=== PATIENT | male | born 1955 | race Caucasian/White ===

== ENCOUNTER → 2017-04-27 | Outpatient (CLI) | payer BC ==
[~2017-04-27] MED LIST: DPKSP125 PO; DULO60CA44 PO; IMT50 PO; ONDA4TAB54 PO; PROM25TA16 PO
[2017-04-27 12:15] LABS: BASO % 0.6 %; BASO ABS # 0.05 K/uL (0-0.2); COMPLETE YES; EOS % 4.2 %; HEMATOCRIT 43.8 % (42-52); IG% 0.1 %; LYMPH % 23.5 %; LYMPH ABS # 1.84 K/uL (1.2-3.4); MEAN CELL VOLUME 92.4 fL (80-100); MEAN CORPUSCULAR HEMOGLOBIN 31.2 pg (25-34); MEAN CORPUSCULAR HGB CONC 33.8 g/dl (32-36); MEAN PLATELET VOLUME 9.9 fL (7.4-10.4); MONO % 8.9 %; NEUT % 62.7 %; PLATELET COUNT 197 K/uL (130-400); RED BLOOD COUNT 4.74 M/uL (4.7-6.1); WHITE BLOOD COUNT 7.83 K/uL (4.8-10.8)
[2017-04-27 12:33] LABS: ESTIMATED AVERAGE GLUCOSE 100 mg/dl; HA1C FLAG Normal (Normal)
[2017-04-27 12:34] LABS: ALT/SGPT 37 U/L (12-78); AST/SGOT 11 U/L (15-37); BLOOD UREA NITROGEN 11 mg/dl (7-18); BUN/CREATININE RATIO 11.2 (10-20); CALCIUM 8.9 mg/dl (8.5-10.1); CARBON DIOXIDE 28 mmol/L (21-32); CHLORIDE 107 mmol/L (98-107); CHOLESTEROL 213 mg/dl (0-200); CREATININE 0.94 mg/dl (0.60-1.40); GLUCOSE 105 mg/dl (70-99); POTASSIUM 4.6 mmol/L (3.5-5.1); SODIUM 141 mmol/L (136-145)
[2017-04-27 12:36] LABS: ALB/GLOB RATIO 1.2 (0.9-2); ALKALINE PHOSPHATASE 101 U/L (45-117); CHOLESTEROL/HDL RATIO 8.2; HDL CHOLESTEROL 26 mg/dl; TRIGLYCERIDES 866 mg/dl (0-150)
== END | disposition home or self-care (01) ==
LOC: C.LABBFT 08:44
PROVIDERS: ATTEND Physician Assistant Medical
DX: D64.9 Anemia, unspecified (principal); E78.5 Hyperlipidemia, unspecified; I10 Essential (primary) hypertension; E78.1 Pure hyperglyceridemia; R73.01 Impaired fasting glucose

== ENCOUNTER → 2017-10-12 | Outpatient (CLI) | payer BC ==
[~2017-10-12] MED LIST changes: +DIVA1CAP2 PO; -DPKSP125 PO
[2017-10-12 17:36] LABS: ALBUMIN 3.9 gm/dl (3.4-5.0); ALT/SGPT 34 U/L (12-78); AST/SGOT 18 U/L (15-37); BLOOD UREA NITROGEN 14 mg/dl (7-18); CALCIUM 8.8 mg/dl (8.5-10.1); CARBON DIOXIDE 29 mmol/L (21-32); CREATININE 0.97 mg/dl (0.60-1.40); GLUCOSE 82 mg/dl (70-99); POTASSIUM 3.7 mmol/L (3.5-5.1); SODIUM 139 mmol/L (136-145)
[2017-10-12 17:41] LABS: ALKALINE PHOSPHATASE 135 U/L (45-117); CHOLESTEROL 84 mg/dl (0-200); LDL CHOLESTEROL CALCULATED 11 mg/dl; TOTAL PROTEIN 7.8 gm/dl (6.4-8.2)
== END | disposition home or self-care (01) ==
LOC: C.LABBFT 14:25
PROVIDERS: ATTEND Internal Medicine
DX: R73.01 Impaired fasting glucose (principal); Z12.5 Encounter for screening for malignant neoplasm of prostate; E78.5 Hyperlipidemia, unspecified

== ENCOUNTER → 2017-11-04 | Outpatient (CLI) | payer BC ==
[~2017-11-04] MED LIST changes: +DIVA125C4 PO; -DIVA1CAP2 PO
[2017-11-04 13:03] LABS: BLOOD UREA NITROGEN 18 mg/dl (7-18); CALCIUM 9.1 mg/dl (8.5-10.1); CARBON DIOXIDE 31 mmol/L (21-32); CREATININE 1.17 mg/dl (0.60-1.40); GLUCOSE 75 mg/dl (70-99); POTASSIUM 3.6 mmol/L (3.5-5.1); SODIUM 140 mmol/L (136-145)
== END | disposition home or self-care (01) ==
LOC: C.LABBFT 10:28
PROVIDERS: ATTEND Physician Assistant Medical
DX: I10 Essential (primary) hypertension (principal)

== ENCOUNTER 2019-01-15 03:36 | Observation (INO) ==
[2019-01-15] MEDS ORDERED: fentaNYL citrate 100 MCG/2 ML VIAL IV STA (03:56)
[2019-01-15 04:10] LABS: Basophils # (auto) 0.03 K/uL (0-0.2); Basophils % (auto) 0.4 %; Eosinophils # (auto) 0.14 K/uL (0-0.5); Eosinophils % (auto) 1.7 %; Hematocrit (blood only) 36.2 % (42-52); Hemoglobin 12.3 g/dL (14.0-18.0); Immature Granulocytes # (auto) 0.01 K/uL (0.00-0.02); Immature Granulocytes % (auto) 0.1 %; Lymphocytes # (auto) 1.08 K/uL (1.2-3.4); Lymphocytes % (auto) 13.1 %; Mean Corpuscular Volume 90.5 fL (80-100); Mean Platelet Volume 8.9 fL (7.4-10.4); Monocytes % (auto) 10.9 %; Neutrophils # (auto) 6.11 K/uL (1.4-6.5); Neutrophils % (auto) 73.8 %; Platelet Count 183 K/uL (130-400); RDW Coefficient of Variation 13.2 % (11.5-14.5); RDW Standard Deviation 43.5 fL (36.4-46.3); White Blood Count 8.27 K/uL (4.8-10.8)
[2019-01-15 04:21] LABS: INR 1.7 (0.9-1.1); Prothrombin Time 17.2 Seconds (9.0-12.0)
[2019-01-15 04:22] LABS: iSTAT Creatinine 0.8 mg/dl (0.6-1.3); iSTAT Hemoglobin 11.9 g/dl (14.0-18.0); iSTAT Ionized Calcium 1.11 mmol/l (1.12-1.32); iSTAT Potassium 3.5 mEq/L (3.3-5.0)
[2019-01-15 04:28] LABS: Blood Urea Nitrogen 13 mg/dl (7-18); Carbon Dioxide 26 mmol/L (21-32); Chloride 112 mmol/L (98-107); Est GFR (African American) 106.2; Potassium 3.6 mmol/L (3.5-5.1); Sodium 141 mmol/L (136-145)
[2019-01-15 04:29] LABS: Alanine Aminotransferase 35 U/L (12-78); Albumin Level 3.4 gm/dl (3.4-5.0); Aspartate Aminotransferase 29 U/L (15-37); BUN Creatinine Ratio 14.4 (10-20); Bilirubin Direct 0.1 mg/dl (0-0.2); Calcium 8.6 mg/dl (8.5-10.1); Creatinine Clr Calc Pharmacy 90.8 ml/min; Est GFR (Non-African American) 91.6; Glucose 111 mg/dl (70-99)
[2019-01-15 04:31] LABS: Alkaline Phosphatase 129 U/L (45-117); Bilirubin,Total 0.3 mg/dl (0.2-1)
[2019-01-15] MEDS ORDERED: OPTIRAY 320 125ml IV PRN (04:52)
[2019-01-15 05:39] LABS: Troponin I < 0.015 ng/ml (0-0.045)
[2019-01-15] MEDS ORDERED: HYDROmorphone INJ 1 MG/ML SYRINGE IV STA (05:50)
--- NOTE | 2019-01-15 08:32 | CT Scan Report ---
CT ANGIOGRAPHY OF THE CHEST, ABDOMEN, AND PELVIS CLINICAL HISTORY: post op MV repair, tearing left chest pain COMPARISON STUDY: Chest CT July 09, 2018. TECHNIQUE: Before and following the IV administration of 119 mL of Optiray-320, helical axial images of the chest, abdomen and pelvis were obtained. Maximal intensity projections and sagittal and coron al reformats were viewed on an independent 3D workstation. IV contrast was administered without comp lication. Automated exposure control was utilized for the study. A dose lowering technique was util ized adhering to the principles of ALARA. CT DOSE: 713.97 mGy.cm FINDINGS: There are postoperative findings consistent with recent median sternotomy and mitral valve replacement. Small mildly complex pericardial effusion is noted. The heart is mildly enlarged. Ther e is no thoracic aortic intramural hematoma or dissection. A small left pleural effusion is noted wit h left basilar opacity suggestive of atelectasis. There is no pneumothorax. There is no consolidation to suggest pneumonia. Central airways are patent. No pulmonary embolus is identified. There may be o ccluded device within the left atrial appendage. Upper abdomen is unremarkable. Bony thorax is unrema rkable. Small hiatal hernia is noted. IMPRESSION: 1. No thoracic aortic dissection. 2. Small mildly complex pericardial effusion with postoperative findings suggestive of recent median sternotomy. 3. Small left pleural effusion with left basilar opacity suggestive of atelectasis. Electronically signed by: Dariusz Bhakta M.D. 01/15/2019 8:30 AM
--- NOTE | 2019-01-15 08:44 | Emergency Department Note ---
Entered by Timmy Hancock acting as a scribe for Sumeet Jang MD ED Provider Note Name: Brenden Hogue Age: 63 Arrives Via: Private Vehicle Informant: Patient CC: Chest Pain HPI: A male arrives for evaluation of situational chest pain starting last night. The patient states he had a mitral valve repair by Dr. Lopez in [place]. He states he started to have chest pain under his rib cage. He states the pain is worse with deep breaths. He notes he took Tylenol for the pain. The patient states laying down makes the pain worse. The patient notes he had shoulder pain but he does not have it now. He denies abdominal pain, urinary symptoms, and kidney problems. The patient notes he takes Coumadin. He notes he did a cath before the surgery and it showed no blockages. ROS: See above HPI for pertinent positives & negatives. A total of 10 systems reviewed and were otherwise negative. Past Medical History: Cyst of left kidney, mitral regurgitation, hyperlipidemia, HTN, GERD Past Surgical History: Mitral valve repair, History of appendectomy, Hx of LASIK, History of colonoscopy, Hx of vasectomy, H/O knee surgery Family History: Father- Glioblastoma Social History: Uses hearing aid. Never smoker. Home Medications: Atorvastatin, hydrochlorothiazide, hydrocodone-acetaminophen, and irbesartan. Allergies Aspirin and morphine Physical: Vitals: BP: 139/89. P: 71. R: 18. T: 97.9. O2: 97 Exam: GENERAL: Patient is uncomfortable appearing and in moderate distress. EYES: No scleral icterus, unremarkable pupils. ENT: Mucous membranes moist, no nasal congestion. NECK: No masses appreciated, no meningismus, trachea is midline. RESPIRATORY: No dyspnea. Clear to auscultation and equal bilaterally. No wheeze, no rhonchi. CARDIOVASCULAR: Regular rate and rhythm. No murmurs, rubs, gallops appreciated. GASTROINTESTINAL: Abdomen soft, non-tender, no peritonitis. Bowel sounds positive. No masses appreciated. BACK: No midline tenderness, no CVA tenderness EXTREMITIES: Normal motion all extremities, no cyanosis, no edema. NEUROLOGIC: Alert and oriented, no acute motor or sensory deficits, no focal weakness, cranial nerves grossly intact. SKIN: No rash, no jaundice, no diaphoresis. ED Course: Prior Medical Record, Triage/Nursing Notes, Medications, Allergies reviewed by Me Vital Signs: reviewed and remarkable for HTN (initially) Labs: Reviewed and remarkable for INR 1.7, Trop negative, mild anemia, otherwise normal cbc, bmp, lft Interventions: Saline Lock, Fentanyl 50mcg IV, Dilaudid 1 mg IV, NSS bolus 1 L IV Imaging: X ray results are stated below per my interpretation: Chest: 1 view: No infiltrate, no effusion, normal cardiac border. [facility] Radiologist interpretation reviewed by me: "CTA CHEST: No large central PE. Some peripheral vessels not well evaluated due to motion artifact. No evidence of aortic aneurysm or dissection. Small left pleural effusion with left greater than right basilar atelectasis/infiltrate. Pericardial effusion measuring approximately 1.3 cm in thickness. Stranding and fluid surrounding the sternum, may be postoperative. Correlate clinically regarding inflammatory/infectious process. Linear radiopacity between the main pulmonary artery and vein. Correlate with surgical history. Small hiatal hernia. Mild esophageal wall thickening. Radiologist: Kenia Youngblood M.D." EKG: Per My Interpretation: Indication: Chest Pain: NSR 80 bpm qtc 456 without ectopy nor ischemia, mildly low voltage Consults: 0555: I spoke with Dr. Lopez, cardiothoracic surgeon at [place]. I discussed tonight's findings. He notes concern for pericarditis. He discussed possibiliti es for cardiac tamponade, but given normal vitals and exam findings, we will wait for ECHO. Patient will be admitted to this facility for cardiac evaluation and ECHO. 0610: I spoke with Dr. Maloney, team psychologist. He will get the ECHO done and will evaluate the patient. He requests the patient be admitted to the hospitalist service. 0620: I spoke with Dr. Abarca, [facility] hospitalist, about this patient. He will evaluate the patient for further management. Reassessments/Times: 0345: The patient was evaluated in room B5, and a complete history and physical examination were performed. 0512: I reevaluated the patient. He states his pain has improved. He states he still has some sharp periodic pain. He declines further pain medication. His BP has improved. Blood pressure: Normal with pain control. No Referral necessary Disposition: Hospitalization Differentials: Differential: Cardiac Ischemia (STEMI, NSTEMI, Unstable Angina, etc), Aortic Dissection, Arrhythmia, Pulmonary Embolism, Pneumonia, Pneumothorax, MSK, Infectious, Pericarditis/Myocarditis, Esophageal Rupture, Gastrointestinal, amongst other pathologies entertained. Medical Decision Makin yr old male 5 weeks post [address] repair [address] [facility] arrives for evaluation of worsening left/substernal chest pain over last 48 hours. Pleuritic as well as worse with heart beating. No evidence on infection nor tamponade on arrival/exam. CXR clear on arrival. With HTN, recent cardiac surg and stabbing pain emergently sent to CT once pain controlled. No evidence dissection, nor evidence of central PE. There is evidence of pericardial effusion, left pleural effusion, sternum stranding/fluid. Reviewed with CTSurg at [facility] who feel patient will need echo but that we can do this at our facility. Reviewed with Dr Maloney who agrees with this plan and will bring in to hospitalist for further management. With patient control patient looks well and is stable. Likely this is perica rditis though with effusion will need echo. No fever, wbc ok and he does not appear septic, seem likely other CT findings related to post op as opposed to infectious etiology. Impression: Pericardial Effusion Left-Sided Chest Pain Pleural Effusion on Left Sumeet Jang MD The scribe's documentation has been prepared under my direction and personally reviewed by me in its entirety. I confirm that the note above accurately reflects all work, treatment, procedures, and medical decision making performed by me. 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 HOSPITALIZED AT [facility]. NO SURGERY. GERD (gastroesophageal reflux disease) GI bleed R/T [facility] Hearing deficit Heart murmur Hemorrhoids High blood pressure Hyperlipidemia Kidney stones Migraine Mitral valve regurgitation Temporomandibular joint disorder [employer]. NEVER LOCKED. Surgical History H/O knee surgery 1976. History of appendectomy History of appendectomy History of colonoscopy Hx of LASIK Hx of vasectomy Family History Father Glioblastoma Social History (Reviewed 01/15/19 @ 04:25 by Timmy Lara Preferred Language: Djiboutian Communication Ability: Effective Visual Impairment: No Limitations Hearing Ability: Use of Hearing Aid Beliefs That Will Affect Care: None Current Living Situation: Spouse Feels Safe at Home: Yes Smoking Status: Never smoker Second Hand Exposure: No Hx Alcohol Use: No Hx Substance Use: No Results & Data Vital Signs Vital Signs - 24 hr 01/15/19 03:39 01/15/19 03:48 01/15/19 04:01 Temperature 36.6 C Temperature Source Oral Sepsis Recent Fever Within 48 Hours No Sepsis Action Taken by Nursing No Action Required Pulse Rate 79 77 71 Pulse Rate [Apical] Pulse Rate from SpO2 Sensor 76 71 Pulse Rhythm [Apical] Pulse Strength [Apical] Respiratory Rate 16 25 H 24 Respiratory Effort / Characteristics Respiratory Depth Normal Blood Pressure 172/124 H 175/100 H 139/89 Blood Pressure [Right Arm] Blood Pressure Mean 140 125 105 Blood Pressure Mean [Right Arm] Pulse Oximetry 97 96 96 Oxygen Delivery Method Room Air 01/15/19 04:07 01/15/19 04:52 01/15/19 04:55 Temperature Temperature Source Sepsis Recent Fever Within 48 Hours Sepsis Action Taken by Nursing Pulse Rate 69 Pulse Rate [Apical] 71 69 Pulse Rate from SpO2 Sensor 71 Pulse Rhythm [Apical] Regular Regular Pulse Strength [Apical] Normal Respiratory Rate 18 16 17 Respiratory Effort / Characteristics Non-Labored Spontaneous Labored Non-Labored Spontaneous Respiratory Depth Normal Normal Blood Pressure 151/94 H Blood Pressure [Right Arm] 139/89 151/94 H Blood Pressure Mean 113 Blood Pressure Mean [Right Arm] 105 113 Pulse Oximetry 97 96 96 Oxygen Delivery Method Room Air Room Air 01/15/19 05:00 01/15/19 05:01 01/15/19 05:10 Temperature Temperature Source Sepsis Recent Fever Within 48 Hours Sepsis Action Taken by Nursing Pulse Rate 68 70 66 Pulse Rate [Apical] Pulse Rate from SpO2 Sensor 67 69 66 Pulse Rhythm [Apical] Pulse Strength [Apical] Respiratory Rate 14 15 19 Respiratory Effort / Characteristics Respiratory Depth Blood Pressure 148/93 H Blood Pressure [Right Arm] Blood Pressure Mean 111 Blood Pressure Mean [Right Arm] Pulse Oximetry 96 94 97 Oxygen Delivery Method 01/15/19 05:20 01/15/19 05:30 01/15/19 05:31 Temperature Temperature Source Sepsis Recent Fever Within 48 Hours Sepsis Action Taken by Nursing Pulse Rate 69 70 68 Pulse Rate [Apical] Pulse Rate from SpO2 Sensor 70 74 73 Pulse Rhythm [Apical] Pulse Strength [Apical] Respiratory Rate 20 21 22 Respiratory Effort / Characteristics Respiratory Depth Blood Pressure 150/96 H Blood Pressure [Right Arm] Blood Pressure Mean 114 Blood Pressure Mean [Right Arm] Pulse Oximetry 94 89 L Oxygen Delivery Method 01/15/19 05:39 01/15/19 05:40 01/15/19 05:50 Temperature Temperature Source Sepsis Recent Fever Within 48 Hours Sepsis Action Taken by Nursing Pulse Rate 70 66 Pulse Rate [Apical] 69 Pulse Rate from SpO2 Sensor 71 67 Pulse Rhythm [Apical] Regular Pulse Strength [Apical] Respiratory Rate 14 19 22 Respiratory Effort / Characteristics Non-Labored Spontaneous Respiratory Depth Normal Blood Pressure Blood Pressure [Right Arm] 150/96 H Blood Pressure Mean Blood Pressure Mean [Right Arm] 114 Pulse Oximetry 95 95 97 Oxygen Delivery Method Room Air 01/15/19 06:00 01/15/19 06:01 01/15/19 06:10 Temperature Temperature Source Sepsis Recent Fever Within 48 Hours Sepsis Action Taken by Nursing Pulse Rate 69 72 71 Pulse Rate [Apical] Pulse Rate from SpO2 Sensor 69 72 71 Pulse Rhythm [Apical] Pulse Strength [Apical] Respiratory Rate 19 15 14 Respiratory Effort / Characteristics Respiratory Depth Blood Pressure 155/106 H Blood Pressure [Right Arm] Blood Pressure Mean 122 Blood Pressure Mean [Right Arm] Pulse Oximetry 97 96 97 Oxygen Delivery Method 01/15/19 06:20 01/15/19 06:30 01/15/19 06:31 Temperature Temperature Source Sepsis Recent Fever Within 48 Hours Sepsis Action Taken by Nursing Pulse Rate 72 90 81 Pulse Rate [Apical] Pulse Rate from SpO2 Sensor 81 87 81 Pulse Rhythm [Apical] Pulse Strength [Apical] Respiratory Rate 26 H 20 13 Respiratory Effort / Characteristics Respiratory Depth Blood Pressure 151/99 H Blood Pressure [Right Arm] Blood Pressure Mean 116 Blood Pressure Mean [Right Arm] Pulse Oximetry 97 97 97 Oxygen Delivery Method 01/15/19 06:40 01/15/19 06:50 01/15/19 07:00 Temperature Temperature Source Sepsis Recent Fever Within 48 Hours Sepsis Action Taken by Nursing Pulse Rate 76 78 75 Pulse Rate [Apical] Pulse Rate from SpO2 Sensor 75 78 75 Pulse Rhythm [Apical] Pulse Strength [Apical] Respiratory Rate 18 20 17 Respiratory Effort / Characteristics Respiratory Depth Blood Pressure Blood Pressure [Right Arm] Blood Pressure Mean Blood Pressure Mean [Right Arm] Pulse Oximetry 95 93 97 Oxygen Delivery Method 01/15/19 07:01 01/15/19 07:10 01/15/19 07:20 Temperature Temperature Source Sepsis Recent Fever Within 48 Hours Sepsis Action Taken by Nursing Pulse Rate 74 74 79 Pulse Rate [Apical] Pulse Rate from SpO2 Sensor 74 74 77 Pulse Rhythm [Apical] Pulse Strength [Apical] Respiratory Rate 19 19 19 Respiratory Effort / Characteristics Respiratory Depth Blood Pressure 151/108 H Blood Pressure [Right Arm] Blood Pressure Mean 122 Blood Pressure Mean [Right Arm] Pulse Oximetry 96 94 93 Oxygen Delivery Method 01/15/19 07:30 01/15/19 07:31 01/15/19 07:40 Temperature Temperature Source Sepsis Recent Fever Within 48 Hours Sepsis Action Taken by Nursing Pulse Rate 77 78 77 Pulse Rate [Apical] Pulse Rate from SpO2 Sensor 78 78 77 Pulse Rhythm [Apical] Pulse Strength [Apical] Respiratory Rate 19 20 18 Respiratory Effort / Characteristics Respiratory Depth Blood Pressure 140/86 Blood Pressure [Right Arm] Blood Pressure Mean 104 Blood Pressure Mean [Right Arm] Pulse Oximetry 93 93 92 Oxygen Delivery Method 01/15/19 07:50 01/15/19 08:00 01/15/19 08:01 Temperature Temperature Source Sepsis Recent Fever Within 48 Hours Sepsis Action Taken by Nursing Pulse Rate 78 80 85 Pulse Rate [Apical] Pulse Rate from SpO2 Sensor 78 80 85 Pulse Rhythm [Apical] Pulse Strength [Apical] Respiratory Rate 20 19 30 H Respiratory Effort / Characteristics Respiratory Depth Blood Pressure 139/90 Blood Pressure [Right Arm] Blood Pressure Mean 106 Blood Pressure Mean [Right Arm] Pulse Oximetry 93 93 94 Oxygen Delivery Method Laboratory Data Result diagrams: 01/15/19 03:59 01/15/19 03:59 Lab Results 01/15/19 01/15/19 01/15/19 Range/Units 03:59 03:59 03:59 WBC 8.27 (4.8-10.8) K/uL RBC 4.00 L (4.7-6.1) M/uL Hgb 12.3 L (14.0-18.0) g/dL POC Hgb (14.0-18.0) g/dl Hct 36.2 L (42-52) % POC Hct (42-52) % MCV 90.5 (80-100) fL MCH 30.8 (25-34) pg MCHC 34.0 (32-36) g/dL RDW Std Deviation 43.5 (36.4-46.3) fL RDW Coeff of Gregory 13.2 (11.5-14.5) % Plt Count 183 (130-400) K/uL MPV 8.9 (7.4-10.4) fL Immature Gran % (Auto) 0.1 % Neut % (Auto) 73.8 % Lymph % (Auto) 13.1 % Villalba % (Auto) 10.9 % Eos % (Auto) 1.7 % Baso % (Auto) 0.4 % Immature Gran # (Auto) 0.01 (0.00-0.02) K/uL Neut # (Auto) 6.11 (1.4-6.5) K/uL Lymph # (Auto) 1.08 L (1.2-3.4) K/uL Villalba # (Auto) 0.90 H (0.11-0.59) K/uL Eos # (Auto) 0.14 (0-0.5) K/uL Baso # (Auto) 0.03 (0-0.2) K/uL PT 17.2 H (9.0-12.0) Seconds INR 1.7 H (0.9-1.1) POC Sodium (135-144) mEq/L Sodium 141 (136-145) mmol/L POC Potassium (3.3-5.0) mEq/L Potassium 3.6 (3.5-5.1) mmol/L POC Chloride (101-112) mEq/L Chloride 112 H (98-107) mmol/L Carbon Dioxide 26 (21-32) mmol/L POC Total CO2 (24-31) mEq/l Anion Gap 3.0 (3-11) POC Anion Gap (16-25) mmol/L POC BUN (7-18) mg/dl BUN 13 (7-18) mg/dl Creatinine 0.89 (0.6-1.4) mg/dl POC Creatinine (0.6-1.3) mg/dl Est Cr Clr Drug Dosing 90.8 ml/min Est GFR ( Amer) 106.2 Est GFR (Non-Af Amer) 91.6 BUN/Creatinine Ratio 14.4 (10-20) Glucose 111 H (70-99) mg/dl POC Glucose (other) (70-99) mg/dl Calcium 8.6 (8.5-10.1) mg/dl POC Ioniz Calcium Antonieta (1.12-1.32) mmol/l Total Bilirubin 0.3 (0.2-1) mg/dl Direct Bilirubin 0.1 (0-0.2) mg/dl AST 29 (15-37) U/L ALT 35 (12-78) U/L Alkaline Phosphatase 129 H (45-117) U/L Troponin I < 0.015 (0-0.045) ng/ml Total Protein 7.0 (6.4-8.2) gm/dl Albumin 3.4 (3.4-5.0) gm/dl Lipase 84 (73-393) U/L 01/15/19 01/15/19 Range/Units 03:59 04:07 WBC (4.8-10.8) K/uL RBC (4.7-6.1) M/uL Hgb (14.0-18.0) g/dL POC Hgb 11.9 L (14.0-18.0) g/dl Hct (42-52) % POC Hct 35 L (42-52) % MCV (80-100) fL MCH (25-34) pg MCHC (32-36) g/dL RDW Std Deviation (36.4-46.3) fL RDW Coeff of Gregory (11.5-14.5) % Plt Count (130-400) K/uL MPV (7.4-10.4) fL Immature Gran % (Auto) % Neut % (Auto) % Lymph % (Auto) % Villalba % (Auto) % Eos % (Auto) % Baso % (Auto) % Immature Gran # (Auto) (0.00-0.02) K/uL Neut # (Auto) (1.4-6.5) K/uL Lymph # (Auto) (1.2-3.4) K/uL Villalba # (Auto) (0.11-0.59) K/uL Eos # (Auto) (0-0.5) K/uL Baso # (Auto) (0-0.2) K/uL PT (9.0-12.0) Seconds INR (0.9-1.1) POC Sodium 143 (135-144) mEq/L Sodium (136-145) mmol/L POC Potassium 3.5 (3.3-5.0) mEq/L Potassium (3.5-5.1) mmol/L POC Chloride 108 (101-112) mEq/L Chloride (98-107) mmol/L Carbon Dioxide (21-32) mmol/L POC Total CO2 24 (24-31) mEq/l Anion Gap (3-11) POC Anion Gap 16.0 (16-25) mmol/L POC BUN 12 (7-18) mg/dl BUN (7-18) mg/dl Creatinine (0.6-1.4) mg/dl POC Creatinine 0.8 (0.6-1.3) mg/dl Est Cr Clr Drug Dosing ml/min Est GFR ( Amer) Est GFR (Non-Af Amer) BUN/Creatinine Ratio (10-20) Glucose (70-99) mg/dl POC Glucose (other) 117 H (70-99) mg/dl Calcium (8.5-10.1) mg/dl POC Ioniz Calcium Antonieta 1.11 L (1.12-1.32) mmol/l Total Bilirubin (0.2-1) mg/dl Direct Bilirubin (0-0.2) mg/dl AST (15-37) U/L ALT (12-78) U/L Alkaline Phosphatase (45-117) U/L Troponin I Cancelled (0-0.045) ng/ml Total Protein (6.4-8.2) gm/dl Albumin (3.4-5.0) gm/dl Lipase Cancelled (73-393) U/L Administered Medications Ioversol (Optiray 320 125ml) 119 ml IV ONCE PRN PRN Reason: Interaction Checking Stop: 01/19/19 04:51 Last Admin: 01/15/19 04:52 Dose: 119 ml Documented by: [id number] Discontinued Medications Fentanyl Citrate (Fentanyl Citrate) 75 mcg IV NOW STA Stop: 01/15/19 03:57 Last Admin: 01/15/19 04:07 Dose: 75 mcg Documented by: [id number] Hydromorphone HCl (Dilaudid) 1 mg IV NOW STA Stop: 01/15/19 05:51 Last Admin: 01/15/19 05:56 Dose: 1 mg Documented by: [id number] Discharge Plan Visit Data Chief Complaint: Chest Pain Stated Complaint: HARD TO BREATHE,CHEST PAIN ED Provider: Sumeet Jang Discharge Problem: Pericardial effusion, Left-sided chest pain, Pleural effusion on left Forms Stand Alone Forms: Call Back Authorization, My [facility] Prescriptions Prescriptions: No Action levothyroxine 50 mcg tablet 25 mg PO DAILY RF: 0 warfarin [Jantoven] 5 mg tablet 5 mg PO 2XWK RF: 0 warfarin [Jantoven] 5 mg tablet 2.5 mg PO 5XWK RF: 0 atorvastatin 40 mg Tablet 40 mg PO HS RF: 0 hydrochlorothiazide 25 mg Tablet 25 mg PO DAILY RF: 0 irbesartan 300 mg Tablet 150 mg PO DAILY RF: 0 Referrals Referrals: Mart Lowe MD [Primary Care Provider] - The scribe's documentation has been prepared under my direction and personally r eviewed by me in its entirety. I confirm that the note above accurately reflects all work, treatment, procedures, and medical decision making performed by me.
--- NOTE | 2019-01-15 09:01 | History & Physical Report ---
Date of Service January 15, 2019 Assessment & Plan (1) Pericardial effusion: 63-year-old male with a past medical history of hypertension, hyperlipidemia status post mitral valve replacement 5 weeks ago presents with left-sided chest pain, constant, worse with inspiration Left-sided chest pain/pericardial effusionlikely representing underlying pericarditis Small noncomplex pericardial effusion seen on CT, troponin negative, low voltage normal sinus rhythm Cardiology consulted, echocardiogram ordered, patient started on colchicine Pain controlled in the emergency roomPercocet every 4, as needed for pain Continue to trend troponin, EKG with chest pain Status post mitral valve replacement Continue warfarinINR 1.7 5 mg Thursday and Thursday 2.5 mg Thursday, Thursday, , Thursday Hypertension Continue irbesartan Hydrochlorothiazide Hyperlipidemia Continue atorvastatin Hypothyroidism Continue levothyroxine CODE STATUS Full code DVT prophylaxis Warfarin Diet N.p.o. until seen by cardiology, can have ice chips and meds (2) Left-sided chest pain: (3) Hyperlipidemia: (4) HTN (hypertension): (5) GERD (gastroesophageal reflux disease): History of Present Illness Primary Care Provider: Jarrod Lowe MD 63-year-old male with a past medical history of hypertension, hyperlipidemia, mitral valve insufficiency status post replacement, GERD presents with left- sided chest pain. The patient is status post mitral valve replacement 5 weeks ago. He states that since his surgery he is recovering well and has not had any issues. Earlier this week he felt a twinge of left-sided pain while doing some gardening. He states that similar pain continued on , worse with deep inspiration and progressed to a sharp pain with normal breathing into Thursday evening. The pain was severe enough on Thursday evening/Thursday morning, prompting him to go to the emergency room. He denies that the pain is worse with exertion. He states that the pain is worse while leaning backwards and is improved with leaning forward. He denies any recent fevers, URI symptoms or GI symptoms. Review of systems Constitutional; no fevers, chills, night sweats HEENT; denies URI symptomsno runny nose, no sneezing, no cough CV; chest pain as described above, no shortness of breath, no lower extremity swelling Pulmonary; no cough, no wheezing, no hemoptysis Abdomen; no abdominal pain, no nausea/vomiting/diarrhea Allergies Allergy/AdvReac Type Severity Reaction Status Date / Time aspirin Allergy Intermediate BLEEDING Verified 01/15/19 05:54 morphine AdvReac Intermediate Vomiting Verified 01/15/19 05:54 Home Medications Home Medications Medication Instructions Recorded Confirmed Type atorvastatin 40 mg PO HS 07/09/18 01/15/19 History hydrochlorothiazide 25 mg PO DAILY 07/09/18 01/15/19 History irbesartan 150 mg PO DAILY 07/09/18 01/15/19 History levothyroxine 25 mg PO DAILY 01/15/19 01/15/19 History warfarin [Jantoven] 2.5 mg PO 5XWK 01/15/19 01/15/19 History warfarin [Jantoven] 5 mg PO 2XWK 01/15/19 01/15/19 History Past Med/Surg History Medical History Acid reflux Anemia R/T BLEEDING HEMORRHOIDS Anxiety Chronic back pain Degenerative disc disease 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 HOSPITALIZED AT [facility]. NO SURGERY. GERD (gastroesophageal reflux disease) GI bleed R/T ASPIRIN Hearing deficit Heart murmur Hemorrhoids High blood pressure Hyperlipidemia Kidney stones Migraine Mitral valve regurgitation Temporomandibular joint disorder [employer]. NEVER LOCKED. Surgical History H/O knee surgery 1976. History of appendectomy History of appendectomy History of colonoscopy Hx of LASIK Hx of vasectomy Family History Father Glioblastoma Social History Preferred Language: German Communication Ability: Effective Visual Impairment: No Limitations Hearing Ability: Use of Hearing Aid Ethernet Network Architect Required: No Beliefs That Will Affect Care: None Current Living Situation: Spouse Other Information That Helps Us Care for You: No Feels Safe at Home: Yes Safety Concerns: Feels Safe At This Time Smoking Status: Never smoker Do You Dip or Chew Tobacco: No Second Hand Exposure: No Hx Alcohol Use: No Hx Substance Use: No Review of Systems Review of Systems: All systems reviewed & are unremarkable except as noted in HPI & below Physical Exam Constitutional: WD/WN, vitals as above Eyes: PERRL, conjunctivae normal, anicteric sclerae ENMT: external ear and nose normal, oropharynx normal Neck: trachea midline, no thyromegaly Respiratory: normal respiratory effort, lungs clear to auscultation Auscultation: no crackles, no rales, no rhonchi and no wheezes Cardiovascular: RRR, no murmur, no edema Gastrointestinal (Abdomen): normal bowel sounds, soft, nontender, no hepatosplenomegaly Musculoskeletal: no cyanosis or clubbing, extremities motor strength 5/5 Skin: no rashes, warm and dry Well-healing sternal incision, no surrounding erythema or discharge Neurologic: PERRL, EOMI, accommodation nl, no face palsy, no dysarthria CN's II-XI intact bilaterally and moves all extremities Psychiatric: A+Ox3, euthymic affect Results & Data Vital Signs (Past 12 Hours) Vital Signs Temp Pulse Pulse Resp BP BP Pulse Ox 01/15/19 08:01 85 30 H 139/90 94 01/15/19 08:00 80 19 93 01/15/19 07:50 78 20 93 01/15/19 07:40 77 18 92 01/15/19 07:31 78 20 140/86 93 01/15/19 07:30 77 19 93 01/15/19 07:20 79 19 93 01/15/19 07:10 74 19 94 01/15/19 07:01 74 19 151/108 H 96 01/15/19 07:00 75 17 97 01/15/19 06:50 78 20 93 01/15/19 06:40 76 18 95 01/15/19 06:31 81 13 151/99 H 97 01/15/19 06:30 90 20 97 01/15/19 06:20 72 26 H 97 01/15/19 06:10 71 14 97 01/15/19 06:01 72 15 155/106 H 96 01/15/19 06:00 69 19 97 01/15/19 05:50 66 22 97 01/15/19 05:40 70 19 95 01/15/19 05:39 69 14 150/96 H 95 01/15/19 05:31 68 22 150/96 H 89 L 01/15/19 05:30 70 21 01/15/19 05:20 69 20 94 01/15/19 05:10 66 19 97 01/15/19 05:01 70 15 148/93 H 94 01/15/19 05:00 68 14 96 01/15/19 04:55 69 17 151/94 H 96 01/15/19 04:52 69 16 151/94 H 96 01/15/19 04:07 71 18 139/89 97 01/15/19 04:01 71 24 139/89 96 01/15/19 03:48 77 25 H 175/100 H 96 01/15/19 03:39 36.6 C 79 16 172/124 H 97 Laboratory Results Laboratory Last Values WBC 8.27 K/uL (4.8-10.8) 01/15/19 03:59 RBC 4.00 M/uL (4.7-6.1) L 01/15/19 03:59 Hgb 12.3 g/dL (14.0-18.0) L 01/15/19 03:59 POC Hgb 11.9 g/dl (14.0-18.0) L 01/15/19 04:07 Hct 36.2 % (42-52) L 01/15/19 03:59 POC Hct 35 % (42-52) L 01/15/19 04:07 MCV 90.5 fL (80-100) 01/15/19 03:59 MCH 30.8 pg (25-34) 01/15/19 03:59 MCHC 34.0 g/dL (32-36) 01/15/19 03:59 RDW Std Deviation 43.5 fL (36.4-46.3) 01/15/19 03:59 RDW Coeff of Gregory 13.2 % (11.5-14.5) 01/15/19 03:59 Plt Count 183 K/uL (130-400) 01/15/19 03:59 MPV 8.9 fL (7.4-10.4) 01/15/19 03:59 Immature Gran % (Auto) 0.1 % 01/15/19 03:59 Neut % (Auto) 73.8 % 01/15/19 03:59 Lymph % (Auto) 13.1 % 01/15/19 03:59 Rutherford % (Auto) 10.9 % 01/15/19 03:59 Eos % (Auto) 1.7 % 01/15/19 03:59 Baso % (Auto) 0.4 % 01/15/19 03:59 Immature Gran # (Auto) 0.01 K/uL (0.00-0.02) 01/15/19 03:59 Neut # (Auto) 6.11 K/uL (1.4-6.5) 01/15/19 03:59 Lymph # (Auto) 1.08 K/uL (1.2-3.4) L 01/15/19 03:59 Rutherford # (Auto) 0.90 K/uL (0.11-0.59) H 01/15/19 03:59 Eos # (Auto) 0.14 K/uL (0-0.5) 01/15/19 03:59 Baso # (Auto) 0.03 K/uL (0-0.2) 01/15/19 03:59 PT 17.2 Seconds (9.0-12.0) H 01/15/19 03:59 INR 1.7 (0.9-1.1) H 01/15/19 03:59 POC Sodium 143 mEq/L (135-144) 01/15/19 04:07 Sodium 141 mmol/L (136-145) 01/15/19 03:59 POC Potassium 3.5 mEq/L (3.3-5.0) 01/15/19 04:07 Potassium 3.6 mmol/L (3.5-5.1) 01/15/19 03:59 POC Chloride 108 mEq/L (101-112) 01/15/19 04:07 Chloride 112 mmol/L (98-107) H 01/15/19 03:59 Carbon Dioxide 26 mmol/L (21-32) 01/15/19 03:59 POC Total CO2 24 mEq/l (24-31) 01/15/19 04:07 Anion Gap 3.0 (3-11) 01/15/19 03:59 POC Anion Gap 16.0 mmol/L (16-25) 01/15/19 04:07 POC BUN 12 mg/dl (7-18) 01/15/19 04:07 BUN 13 mg/dl (7-18) 01/15/19 03:59 Creatinine 0.89 mg/dl (0.6-1.4) 01/15/19 03:59 POC Creatinine 0.8 mg/dl (0.6-1.3) 01/15/19 04:07 Est Cr Clr Drug Dosing 90.8 ml/min 01/15/19 03:59 Est GFR ( Amer) 106.2 01/15/19 03:59 Est GFR (Non-Af Amer) 91.6 01/15/19 03:59 BUN/Creatinine Ratio 14.4 (10-20) 01/15/19 03:59 Glucose 111 mg/dl (70-99) H 01/15/19 03:59 POC Glucose (other) 117 mg/dl (70-99) H 01/15/19 04:07 Calcium 8.6 mg/dl (8.5-10.1) 01/15/19 03:59 POC Ioniz Calcium Antonieta 1.11 mmol/l (1.12-1.32) L 01/15/19 04:07 Total Bilirubin 0.3 mg/dl (0.2-1) 01/15/19 03:59 Direct Bilirubin 0.1 mg/dl (0-0.2) 01/15/19 03:59 AST 29 U/L (15-37) 01/15/19 03:59 ALT 35 U/L (12-78) 01/15/19 03:59 Alkaline Phosphatase 129 U/L (45-117) H 01/15/19 03:59 Troponin I < 0.015 ng/ml (0-0.045) 01/15/19 03:59 Total Protein 7.0 gm/dl (6.4-8.2) 01/15/19 03:59 Albumin 3.4 gm/dl (3.4-5.0) 01/15/19 03:59 Lipase 84 U/L (73-393) 01/15/19 03:59 Diagnostic Findings [facility] [place] [phone] CT Scan Report Patient: ARIEL GARCIA Date: 01/15/19 MR#: [id number]: Joan CEJA Acct ID:[id number]: Date: [address] Zip: [place] [address] Age: 63Location: ED Sex: M Room/Bed: Att Phy: Diagnosis: HARD TO BREATHE,CHEST PAIN Elda Phy: Lowe, Christopher E., MDService Date: 01/15/19 [facility] Phy: Manpreet Maloney D.O.Interpreting Phy: Dariusz Bhakta MD Admit Phy: Ordering Phy: Sumeet Jang M.D. cc: ~ CT ANGIOGRAPHY OF THE CHEST, ABDOMEN, AND PELVIS CLINICAL HISTORY: post op MV repair, tearing left chest pain COMPARISON STUDY: Chest CT July 09, 2018. TECHNIQUE: Before and following the IV administration of 119 mL of Optiray-320, helical axial images of the chest, abdomen and pelvis were obtained. Maximal intensity projections and sagittal and coronal reformats were viewed on an independent 3D workstation. IV contrast was administered without complication. Automated exposure control was utilized for the study. A dose lowering technique was utilized adhering to the principles of ALARA. CT DOSE: 713.97 mGy.cm FINDINGS: There are postoperative findings consistent with recent median sternotomy and mitral valve replacement. Small mildly complex pericardial effusion is noted. The heart is mildly enlarged. There is no thoracic aortic intramural hematoma or dissection. A small left pleural effusion is noted with left basilar opacity suggestive of atelectasis. There is no pneumothorax. There is no consolidation to suggest pneumonia. Central airways are patent. No pulmonary embolus is identified. There may be occluded device within the left atrial appendage. Upper abdomen is unremarkable. Bony thorax is unremarkable. Small hiatal hernia is noted. IMPRESSION: 1. No thoracic aortic dissection. 2. Small mildly complex pericardial effusion with postoperative findings suggestive of recent median sternotomy. 3. Small left pleural effusion with left basilar opacity suggestive of atelectasis. Code Status & VTE Plan Code Status Full code VTE Prophylaxis Plan VTE Prophylaxis will be ordered: Yes Supervising Physician Co-Signing Physician Notes I personally examined the patient and verified all bill points of history and exam, discussed case, and agree with decision making with Dr Bowman feeling better even after getting admitted, started on steroids. vitals noted nad breathing unlabored no pallor or icterus. no focal neuro deficits pericarditis - improving clinically already. continue current treatment. appreciate cardiology guidance. Resident Activity Tracking Resident Involvement: Resident Care Provided Care Provided: Adult [facility] Medicine
[2019-01-15] MEDS ORDERED: OXYCODONE/ACETAMINOPHEN 5mg/325mg TAB ONE (09:07)
--- NOTE | 2019-01-15 09:13 | XRay Report ---
XR chest 1V portable CLINICAL HISTORY: Chest pain. COMPARISON STUDY: Chest radiograph October 18, 2018. FINDINGS: There are median sternotomy wires and prosthetic mitral valve. No pneumothorax or pleural e ffusion is noted. No evidence for pulmonary edema. There is mild enlargement of the cardiac silhouett e. IMPRESSION: No acute cardiopulmonary findings. Electronically signed by: Dariusz Bhakta M.D. 01/15/2019 9:11 AM
[2019-01-15] MEDS ORDERED: OXYCODONE/ACETAMINOPHEN 5mg/325mg TAB PO PRN (09:56)
[2019-01-15] MEDS ORDERED: ACETAMINOPHEN 325 MG TAB PO PRN (09:56)
[2019-01-15] MEDS ORDERED: LEVOTHYROXINE SODIUM 25 MCG TABLET PO SCH (10:15)
[2019-01-15] MEDS ORDERED: IRBESARTAN 150 MG TAB PO SCH (10:15)
[2019-01-15] MEDS: COLCHICINE 0.6 MG TAB PO SCH ×2 (10:38→20:35)
[2019-01-15] MEDS: hydroCHLOROthiazide 25 MG TAB PO SCH ×2 (11:00→20:38)
[2019-01-15] MEDS ORDERED: PANTOprazole 40 MG TAB PO SCH (11:00)
[2019-01-15] MEDS ORDERED: methylPREDNISolone 40 MG in SYRINGE 0 ML IV STA (11:14)
--- NOTE | 2019-01-15 11:21 | Cardiology Consultation ---
Date of Consultation January 15, 2019 Assessment & Plan (1) Pericarditis: Patient presents describing pleuritic chest discomfort in the absence of any recent infectious symptoms. His preoperative cardiac catheterization revealed angiographically normal coronary arteries. Troponin is negative x1, and EKG is without ischemic changes. The discomfort does not come on with aerobic activity. With all these characteristics, I think the likelihood of this being an anginal equivalent is low. He has been anticoagulated with Coumadin, and he has been ambulatory since surgery. The likelihood of him having underlying pulmonary embolism is low even though his INR was subtherapeutic 1.[address], echocardiographic, and clinical findings are consistent with postoperative inflammatory pericarditis, perhaps even a pleuropericarditis given the small left pleural effusion. I have added request for an erythrocyte sedimentation rate and C-reactive protein to his admission labs. Will avoid nonsteroidal anti-inflammatory medications such as ibuprofen given his age, and recent cardiac surgery due to bleeding risks, and thrombotic risks from such medications. Often times high-dose aspirin and tapering dose is a good approach for postoperative open heart surgery patients, but the patient states that he has had significant gastrointestinal bleeding even with a low- dose aspirin in the past. We will therefore cautiously proceed with treatment with corticosteroids. As I discussed the patient, these medications are very effective at treating the pain and the inflammation, often times as the dose is weaned, the symptoms recur. I counseled him that my approach is to typically start with a very low dose of corticosteroid such as prednisone 20 mg taper slowly over a 6-week interval. We will start with an IV dose of Solu-Medrol, 40 mg now, and convert to oral prednisone 20 tomorrow. Colchicine 0.6 mg twice daily is indicated as an anti- inflammatory to prevent recurrence of the postoperative pericarditis. Protonix has been added for GI prophylaxis. A 12-week course of Coumadin had been planned post left atriotomy/mitral valve repair. This is typically performed in order to reduce the risk of postoperative left atrial thrombus. The patient had a secondary indication for Coumadin which was postoperative paroxysmal atrial fibrillation. He has been in sinus rhythm without documented recurrence of the atrial fibrillation since surgery. And he did have a surgical left atrial appendage clip placed. He remains in sinus rhythm today. At present I recommend that we discontinue his course of Coumadin having completed 6 weeks of the planned 12-week course. I think at this point his risk of left atrial thrombus postoperatively is low, and there does appear to be a component of thrombus in the pericardial space and would like to avoid the anticoagulation hastening additional issues with bleeding within the pericardium. Echocardiogram reveals no evidence of tamponade. And his blood pressure is actually on the higher side. Recommend the patient remains on telemetry for observation, and he will be reassessed tomorrow for candidacy for discharge if he is pain-free. Findings and plan discussed with patient and his spouse at length at the bedside. Case was discussed with Dr. Lopez of CT surgery at [facility] via secure provider to provider [employer] Text messaging who was agreeable with the plan as noted. History of Present Illness Attending Physician: Flip Lara, History of Present Illness Brock Hogue is a 63 year old male seen in cardiology consultation per the request of Dr Jnag and Dr Bowman for the evaluation of chest discomfort. The patient is well-known to the undersigned. 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 Preoperative transesophageal echocardiogram performed by the undersigned on 09/28/2018 revealed a partially flail component of the posterior mitral valve leaflet (P1 scallop) due to ruptured cord with resultant severe mitral regurgitation. Patient went on to have complex mitral valve repair on 12/02/[address] [facility] with details as noted below. Postoperative atrial fibrillation had been observed in the immediate postoperative interval. He was however discharged in sinus rhythm on amiodarone and amiodarone had since been discontinued. Overall he has been doing well clinically postoperatively and had his most recent general cardiology follow-up visit on 01/07/2019 at which time stable cardiac signs and symptoms were noted. Hypothyroidism is noted on laboratory studies and therefore levothyroxine was initiated. He had been performing some light yard work on and felt well, but by evening he developed chest discomfort when taking deep breath. This persisted for quite some time and got better through the night. Yesterday, Thursday, he felt well enough that he started his first cardiac rehabilitation session. He performed aerobic exercise with no chest discomfort. When he arrived home however he had progressive chest pain that was worse with deep breathing. He denies any subjective fevers or chills. He denies any cough. The discomfort is not reproduced with moving his upper extremities or walking. But he feels like he cannot take a deep breath. Preoperative coronary angiography performed at [facility] on 11/16/18 revealed angiographically normal coronary arteries. Past Medical / Surgical History: 1.Severe mitral regurgitation status post December 02, 2018 mitral valve repair with a 34 mm Physio II ring, quadrangular resection of P1, left atrial appendage clip, and PFO closure by Dr. Lopez on December 02, 2018. 2.Postoperative course complicated by anemia which did not require transfusion of packed red blood cells, postoperative atrial fibrillation, and sinus node dysfunction. Patient with symptomatic paroxysmal atrial fibrillation (fluttering sensation) with transient junctional rhythm (lightheadedness) with termination of the atrial fibrillation while on amiodarone. He was was prescribed amiodarone and Coumadin anticoagulation and discharged in normal sinus rhythm. 3.Hypertension 4.Dyslipidemia 5.Impaired fasting glucose 6.Iron deficiency anemia 7.Esophageal reflux disease 8.Lactose deficiency 9.Depression 10.Degenerative disc disease, lumbar region 11.External hemorrhoids 12.Migraine headaches 13.Appendectomy 14.Hemorrhoidectomy 15.Knee surgery 16.Colonoscopy Family History: Mother in 2016, unknown cause. She had history of CAD and an unknown cancer. She was 81 years old. His father at the age of 86, two years ago, with glioblastoma. He has three brothers; Flavio with possible CAD. Social History: Nonsmoker. No smokeless tobacco use. Rare alcohol. No illegal drug use. . 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 Allergies Allergy/AdvReac Type Severity Reaction Status Date / Time aspirin Allergy Intermediate BLEEDING Verified 01/15/19 05:54 morphine AdvReac Intermediate Vomiting Verified 01/15/19 05:54 Home Medications Home Medications Medication Instructions Recorded Confirmed Type atorvastatin 40 mg PO HS 07/09/18 01/15/19 History hydrochlorothiazide 25 mg PO DAILY 07/09/18 01/15/19 History irbesartan 150 mg PO DAILY 07/09/18 01/15/19 History levothyroxine 25 mg PO DAILY 01/15/19 01/15/19 History warfarin [Jantoven] 2.5 mg PO 5XWK 01/15/19 01/15/19 History warfarin [Jantoven] 5 mg PO 2XWK 01/15/19 01/15/19 History Patient History Medical History Acid reflux Anemia R/T BLEEDING HEMORRHOIDS Anxiety Chronic back pain Degenerative disc disease 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 HOSPITALIZED AT [facility]. NO MARIJA XIOMY. GERD (gastroesophageal reflux disease) GI bleed R/T ASPIRIN Hearing deficit Heart murmur Hemorrhoids High blood pressure Hyperlipidemia Kidney stones Migraine Mitral valve regurgitation Temporomandibular joint disorder JAW CLICKS. NEVER LOCKED. Surgical History H/O knee surgery 1976. History of appendectomy History of appendectomy History of colonoscopy Hx of LASIK Hx of vasectomy Family History Father Glioblastoma Social History Preferred Language: Maltese Communication Ability: Effective Visual Impairment: No Limitations Hearing Ability: Use of Hearing Aid Beliefs That Will Affect Care: None Current Living Situation: Spouse Feels Safe at Home: Yes Smoking Status: Never smoker Second Hand Exposure: No Hx Alcohol Use: No Hx Substance Use: No Review of Systems Review of Systems: Patient spouse noted a left-sided subconjunctival hemorrhage since . No cough illness. 10 point review of systems is otherwise negative. Physical Exam Physical Exam: General: no acute distress and stated age Eyes: conjunctiva are pink and non-injected, sclera clear Neck: normal jugular venous pulse, no hepatojugular reflux Chest: normal shape, patient unable to take a deep breath due to discomfort -Well-healed midline sternotomy incision, stable sternum, no erythema, no drainage, stable chest tube incisions Lungs: clear to auscultation and percussion Cardiac Exam: - regular heart sounds, no murmurs, rubs, or gallops, no jugular venous distention Abdomen: abdomen soft, non-tender, no abnormal masses and no hepatosplenomegaly Musculoskeletal: no gait disturbance, no weakness Extremities: no edema and no cyanosis Neuro:awake, coversant, follows commands, no focal motor deficits Psych: appropriate affect and insight. Results & Data Vital Signs (Past 12 Hours) Vital Signs Temp Pulse Pulse Resp BP BP Pulse Ox 01/15/19 08:50 77 29 H 96 01/15/19 08:31 77 23 142/93 H 98 01/15/19 08:01 85 30 H 139/90 94 01/15/19 08:00 80 19 93 01/15/19 07:50 78 20 93 01/15/19 07:40 77 18 92 01/15/19 07:31 78 20 140/86 93 01/15/19 07:30 77 19 93 01/15/19 07:20 79 19 93 01/15/19 07:10 74 19 94 01/15/19 07:01 74 19 151/108 H 96 01/15/19 07:00 75 17 97 01/15/19 06:50 78 20 93 01/15/19 06:40 76 18 95 01/15/19 06:31 81 13 151/99 H 97 01/15/19 06:30 90 20 97 01/15/19 06:20 72 26 H 97 01/15/19 06:10 71 14 97 01/15/19 06:01 72 15 155/106 H 96 01/15/19 06:00 69 19 97 01/15/19 05:50 66 22 97 01/15/19 05:40 70 19 95 01/15/19 05:39 69 14 150/96 H 95 01/15/19 05:31 68 22 150/96 H 89 L 01/15/19 05:30 70 21 01/15/19 05:20 69 20 94 01/15/19 05:10 66 19 97 01/15/19 05:01 70 15 148/93 H 94 01/15/19 05:00 68 14 96 01/15/19 04:55 69 17 151/94 H 96 01/15/19 04:52 69 16 151/94 H 96 01/15/19 04:07 71 18 139/89 97 01/15/19 04:01 71 24 139/89 96 01/15/19 03:48 77 25 H 175/100 H 96 01/15/19 03:39 36.6 C 79 16 172/124 H 97 Laboratory Results Cardiac Enzymes 01/15/19 01/15/19 Range/Units 03:59 03:59 AST 29 (15-37) U/L Troponin I < 0.015 Cancelled (0-0.045) ng/ml Coagulation 01/15/19 Range/Units 03:59 PT 17.2 H (9.0-12.0) Seconds CBC 01/15/19 Range/Units 03:59 WBC 8.27 (4.8-10.8) K/uL RBC 4.00 L (4.7-6.1) M/uL Hgb 12.3 L (14.0-18.0) g/dL Hct 36.2 L (42-52) % Plt Count 183 (130-400) K/uL Neut # (Auto) 6.11 (1.4-6.5) K/uL Lymph # (Auto) 1.08 L (1.2-3.4) K/uL [place] # (Auto) 0.90 H (0.11-0.59) K/uL Eos # (Auto) 0.14 (0-0.5) K/uL Baso # (Auto) 0.03 (0-0.2) K/uL Comprehensive Metabolic Panel 01/15/19 Range/Units 03:59 Sodium 141 (136-145) mmol/L Potassium 3.6 (3.5-5.1) mmol/L Chloride 112 H (98-107) mmol/L Carbon Dioxide 26 (21-32) mmol/L BUN 13 (7-18) mg/dl Creatinine 0.89 (0.6-1.4) mg/dl Glucose 111 H (70-99) mg/dl Calcium 8.6 (8.5-10.1) mg/dl Direct Bilirubin 0.1 (0-0.2) mg/dl AST 29 (15-37) U/L ALT 35 (12-78) U/L Alkaline Phosphatase 129 H (45-117) U/L Total Protein 7.0 (6.4-8.2) gm/dl Albumin 3.4 (3.4-5.0) gm/dl Intake and Output 01/14/19 01/15/19 01/15/19 22:59 06:59 14:59 Other: Weight 83.9 kg Diagnostic Findings 01/15/2019 at 3:48 AM revealed normal sinus rhythm at 70 bpm, mildly low voltage, but not significantly changed compared to the previous. No ST segment changes are noted. Summary of radiology report of CT angiogram: No thoracic aortic dissection. Postoperative findings consistent with recent median sternotomy and mitral valve repair. Small left pleural effusion was noted. No pneumothorax. No cons olidation to suggest pneumonia. Left atrial appendage occlusion device noted. Small mildly complex pericardial effusion noted. Transthoracic echocardiogram performed today and reviewed independently by the undersigned: The study is technically adequate for the referral indication. The patient is status post mitral valve repair with a 34 mm Physio II ring, quadrangular resection of P1, left atrial appendage clip, and PFO closure perfomed on December 02, 2108. Sinus rhythm in the mid 70 be per minute range was present during the echocardiogram study. There is mild concentric left ventricular hypertrophy. No regional wall motion abnormalities noted. The LV Ejection Fraction = 60-65%. There is evidence of mitral valve repair and annuloplasty ring. Significant mitral regurgitation is absent. Mitral stenosis is absent. There is a small circumferential pericardial effusion. Echogenicity noted in the pericardial space suggesting some degree of chronicity and possible thrombus component.
[2019-01-15 12:06] LABS: C Reactive Protein 4.79 mg/dl (0-0.29); Troponin I < 0.015 ng/ml (0-0.045)
[2019-01-15] MEDS ORDERED: KETOROLAC TROMETHAMINE 15 MG/ML VIAL IV ONE (13:12)
[2019-01-15] MEDS ORDERED: KETOROLAC TROMETHAMINE 15 MG/ML VIAL ONE (13:15)
[2019-01-15] MEDS ORDERED: WARFARIN SOD 5 MG TAB PO SCH (16:00)
[2019-01-15] MEDS ORDERED: ATORVASTATIN 40 MG TAB PO SCH (21:00)
[2019-01-16 07:48] LABS: Basophils # (auto) 0.01 K/uL (0-0.2); Basophils % (auto) 0.1 %; Eosinophils # (auto) 0.01 K/uL (0-0.5); Eosinophils % (auto) 0.1 %; Hematocrit (blood only) 35.8 % (42-52); Hemoglobin 12.2 g/dL (14.0-18.0); Immature Granulocytes # (auto) 0.04 K/uL (0.00-0.02); Immature Granulocytes % (auto) 0.3 %; Lymphocytes # (auto) 1.11 K/uL (1.2-3.4); Mean Corpuscular Hgb Conc 34.1 g/dL (32-36); Mean Corpuscular Volume 89.9 fL (80-100); Mean Platelet Volume 8.8 fL (7.4-10.4); Monocytes # (auto) 1.33 K/uL (0.11-0.59); Monocytes % (auto) 9.5 %; Neutrophils # (auto) 11.44 K/uL (1.4-6.5); Platelet Count 225 K/uL (130-400); RDW Coefficient of Variation 13.2 % (11.5-14.5); RDW Standard Deviation 42.8 fL (36.4-46.3); Red Blood Count 3.98 M/uL (4.7-6.1); White Blood Count 13.94 K/uL (4.8-10.8)
[2019-01-16 07:58] LABS: INR 1.4 (0.9-1.1); Prothrombin Time 13.9 Seconds (9.0-12.0)
[2019-01-16 08:25] LABS: BUN Creatinine Ratio 17.4 (10-20); Calcium 9.2 mg/dl (8.5-10.1); Creatinine Clr Calc Pharmacy 95.6 ml/min; Est GFR (African American) 108.8; Est GFR (Non-African American) 93.8; Potassium 4.3 mmol/L (3.5-5.1)
--- NOTE | 2019-01-16 08:43 | Cardiology Progress Note ---
Date of Service January 16, 2019 Assessment & Plan (1) Pericarditis: Patient presents with pleuritic chest discomfort with small organized pericardial effusion noted on CT and echocardiogram consistent with a postoperative inflammatory pericarditis having had complex mitral valve repair on 12/02/2018. Erythrocyte sedimentation rate performed yesterday was mildly elevated at 31 mm/h (normal 0-14 mm/h). Low sensitivity C-reactive protein was elevated at 4.79 mg/dL. Renal function electrolytes are stable today. Patient has mild leukocytosis but no infectious symptoms and is afebrile. The patient does not have incisional or sternal pain on palpation, and a CT of the chest did not suggest sternal dehiscence. Given his risk factors for adverse side effects to nonsteroidal anti- inflammatory medications will avoid course of NSAIDs, outside of the one-time dose of Toradol received 01/15/2019. Patient has a history of gastrointestinal bleeding on aspirin and therefore will avoid aspirin use. Coumadin has been discontinued having completed 6 weeks of postoperative therapy. Plan for long slow tapering course of prednisone over 6 weeks. Recommend discharge with prednisone, 5 mg tablets. Taper as follows: Prednisone 20 mg x 7 days, then 15 mg x 7 days, then 10 mg x 7 days, then 5 mg x 7 days, then 2.5 mg x 14 days. Discharge with plans for proton pump inhibitor therapy for GI prophylaxis, Protonix 40 mg daily, or omeprazole if more affordable. Typically, patients with history of valve repair would be on low-dose aspirin for stroke prophylaxis, however this patient has a history of gastrointestinal bleeding with aspirin and therefore aspirin has been avoided. Disposition: Patient stable for discharge to home from a cardiology perspective. He already has a follow-up visit with Dr. Lopez of CT surgery at [facility] on 01/26/2019 and he should keep this appointment. An outpatient echocardiogram is already tentatively scheduled for 02/11/2019 to be helpful in follow-up of the small pericardial effusion for patient should keep this appointment. Patient should keep his upcoming visit with Mr. MartinezRaissa of our practice is tentatively scheduled for 02/11/2019. At that time, he will be reassessed in terms of response of his prednisone taper, and therapy will be adjusted as necessary. I will place a note in his [facility] chart to discharge him from Coumadin clinic. (2) Hypothyroidism: The patient had recently been diagnosed with hypothyroidism. TSH on 11/17/2018 was normal at 2.13 as an outpatient. Patient had completed a short course of amiodarone. A repeat TSH was performed on 01/07/2019 that was elevated at 14.66 IU/L, with normal free T4 of 1.2 The patient had therefore been prescribed levothyroxine 25 mcg daily which she was supposed to take for a 2-week interval starting 01/10/2019, and then increased to 50 mcg daily. A repeat TSH is tentatively planned as an outpatient at a 6-week interval on 02/21/2019. Patient was counseled to continue with this plan. The patient's presenting symptoms are more consistent with an inflammatory postoperative pericarditis rather than pericardial effusion due to hypothyroidism, we need to maintain optimal thyroid function. Subjective Chief complaint: Follow-up chest discomfort Subjective: Patient states he rested well. I checked up on him yesterday afternoon and again last evening just before 7 PM and his chest discomfort improved significantly after the administration of 15 mg of Toradol yesterday afternoon. He is able to take deep breaths this morning which he could not do when I examined him yesterday, and describes no discomfort. Telemetry reveals stable sinus rhythm in the 70 bpm range without any arrhythmia, no episodes of atrial fibrillation noted. He is afebrile on his vital signs. Review of Systems Review of Systems: All systems reviewed & are unremarkable except as noted in HPI & below Physical Exam Physical Exam: General: no acute distress and stated age Eyes: Left conjunctival hemorrhage, unchanged compared to yesterday, mild Neck: normal jugular venous pulse, no hepatojugular reflux Chest: normal shape and normal respiratory effort Well-healed midline sternotomy incision and chest tube incisions without erythema, or drainage. Lungs: clear to auscultation and percussion Cardiac Exam: - regular heart sounds, no murmurs, rubs, or gallops, no jugular venous distention Abdomen: abdomen soft, non-tender, no abnormal masses and no hepatosplenomegaly Musculoskeletal: no gait disturbance, no weakness Extremities: no edema and no cyanosis Neuro:awake, coversant, follows commands, no focal motor deficits Psych: appropriate affect and insight. Results & Data Vital Signs (Past 12 Hours) Vital Signs Temp Pulse Pulse Resp BP Pulse Ox 01/16/19 04:00 36.6 C 71 18 130/82 95 01/15/19 23:04 36.7 C 80 18 128/73 92 01/15/19 20:47 77 Laboratory Results Cardiac Enzymes 01/15/19 01/15/19 Range/Units 11:17 19:10 Troponin I < 0.015 < 0.015 (0-0.045) ng/ml Coagulation INR 1.4 today 01/16/2019 01/16/19 Range/Units 07:23 PT 13.9 H (9.0-12.0) Seconds CBC 01/16/19 Range/Units 07:23 WBC 13.94 H (4.8-10.8) K/uL RBC 3.98 L (4.7-6.1) M/uL Hgb 12.2 L (14.0-18.0) g/dL Hct 35.8 L (42-52) % Plt Count 225 (130-400) K/uL Neut # (Auto) 11.44 H (1.4-6.5) K/uL Lymph # (Auto) 1.11 L (1.2-3.4) K/uL [place] # (Auto) 1.33 H (0.11-0.59) K/uL Eos # (Auto) 0.01 (0-0.5) K/uL Baso # (Auto) 0.01 (0-0.2) K/uL Comprehensive Metabolic Panel 01/16/19 Range/Units 07:23 Sodium 144 (136-145) mmol/L Potassium 4.3 D (3.5-5.1) mmol/L Chloride 113 H (98-107) mmol/L Carbon Dioxide 25 (21-32) mmol/L BUN 15 (7-18) mg/dl Creatinine 0.84 (0.6-1.4) mg/dl Glucose 126 H (70-99) mg/dl Calcium 9.2 (8.5-10.1) mg/dl Intake and Output 01/15/19 01/16/19 01/16/19 22:59 06:59 14:59 Intake Total 575 / 850 Balance 575 / 850 Intake: Oral 575 / 850 Other: # Unmeasured Voids 2
[2019-01-16] MEDS ORDERED: predniSONE 20 MG TAB PO SCH (09:00)
[2019-01-16 10:41] VITALS: BP 144/84; TEMP 97.9; O2SAT 94
[2019-01-16 10:54] VITALS: PULSE 68
--- NOTE | 2019-01-16 11:12 | Discharge Summary ---
Date of Service January 16, 2019 Admission HPI Per Admitting Provider 63-year-old male with a past medical history of hypertension, hyperlipidemia, mitral valve insufficiency status post replacement, GERD presents with left- sided chest pain. The patient is status post mitral valve replacement 5 weeks ago. He states that since his surgery he is recovering well and has not had any issues. Earlier this week he felt a twinge of left-sided pain while doing some gardening. He states that similar pain continued on , worse with deep inspiration and progressed to a sharp pain with normal breathing into Thursday evening. The pain was severe enough on Thursday evening/Thursday morning, prompting him to go to the emergency room. He denies that the pain is worse with exertion. He states that the pain is worse while leaning backwards and is improved with leaning forward. He denies any recent fevers, URI symptoms or GI symptoms. Review of systems Constitutional; no fevers, chills, night sweats HEENT; denies URI symptomsno runny nose, no sneezing, no cough CV; chest pain as described above, no shortness of breath, no lower extremity swelling Pulmonary; no cough, no wheezing, no hemoptysis Abdomen; no abdominal pain, no nausea/vomiting/diarrhea Principal Diagnosis post operative inflammatory pericarditis Discharge Exam Vitals noted as above and within normal limits Seen and examined at bedside with present. GENERAL: Awake, alert to person, place, and time, nontoxic-appearing, in no distress HENT: Normocephalic, atraumatic. Mucus membranes appear moist. EYES: Normal conjunctiva. Sclera non-icteric. EOMI. NECK: Supple. Full range of motion. No JVD RESPIRATORY: Clear to auscultation. Normal work of breathing. CARDIAC: Regular rate, normal rhythm. Extremities warm and well perfused, 2+ radial pulses bilaterally; 2+ posterior tibialis pulses bilaterally. ABDOMEN: Soft, non-distended. No tenderness to palpation in all four quadrants. No rebound or guarding. No masses. Bowel sounds are normal. LOWER EXTREMITIES: Inspection of calves reveal equal size bilaterally. They are non-tender. No edema. No discoloration. NEURO: No focal gross focal motor deficits noted. Sensation in tact. CN II-XII grossly in tact. SKIN: Rash not present. No jaundice noted. Significant lesions not present. PSYCH: Appropriate mood and affect. Cooperative. Exam as done by Priscilla Bowman MD, Turn Supervisor. Discharge Data Allergies Allergy/AdvReac Type Severity Reaction Status Date / Time aspirin Allergy Intermediate BLEEDING Verified 01/15/19 05:54 morphine AdvReac Intermediate Vomiting Verified 01/15/19 05:54 Consultations 01/15/19 06:12 ED Decision to Admit Stat 01/15/19 09:56 Consult Cardiology Routine Ordered Studies 01/15/19 03:56 CT angio chest dissec wo/w con Urgent Hospital Course (1) Pericardial effusion: 63-year-old male with a past medical history of hypertension, hyperlipidemia status post mitral valve replacement 5 weeks ago presents with left-sided constant chest pain, worse with inspiration. Left-sided chest pain/pericardial effusionlikely representing underlying pericarditis Small noncomplex pericardial effusion seen on CT, troponin negative, low voltage normal sinus rhythm Cardiology consulted, echocardiogram ordered -- consistent with a postoperative inflammatory pericarditis having had complex mitral valve repair on 12/02/2018 -home on colchicine 0.6mg BID for 3 months -pt is intolerant of NSAIDS -prolonged prednisone taper (20 mg x 7 days, then 15 mg x 7 days, then 10 mg x 7 days, then 5 mg x 7 days, then 2.5 mg x 14 days. ) GI ppx with PPI while on steroids. Status post mitral valve replacement conferred with cardiology - will DC warfarin given completing 6 weeks of total therapy. -has a history of gastrointestinal bleeding on aspirin and therefore will avoid aspirin use. Hypertension Continue irbesartan, Hydrochlorothiazide Hyperlipidemia Continue atorvastatin Hypothyroidism Continue levothyroxine at current dose, plan for recheck TSH in February. -Patient had completed a short course of amiodarone. -prescribed levothyroxine 25 mcg daily which he was supposed to take for a 2- week interval starting 01/10/2019, and then increased to 50 mcg daily. A repeat TSH is tentatively planned as an outpatient at a 6-week interval on 02/21/2019. Patient was counseled to continue with this plan. . (2) Left-sided chest pain: (3) Hyperlipidemia: (4) HTN (hypertension): (5) GERD (gastroesophageal reflux disease): Total Time Total Time Spent Total Time Spent (In Minutes): <30 Discharge Plan Discharge Items Patient Disposition: Home - Self-Care Reason For Visit: CHEST PAIN, PERICARDITIS Discharge Diagnosis: CHEST PAIN, PERICARDITIS Condition: Good Discharge Goals: Decrease discomfort, Diagnostic testing, Improve disease control, Improve function and Increase independence Activity: Per 'Additional Instructions' section Bathing: No limitations Exercise/Sports: Wait until after follow-up appointment Driving/Machine Use: No limitations Non-emergency contact: Primary Care Provider and Route Agent Call non-emergency contact if: you have any medication questions, your symptoms worsen, your pain is not controlled, your pain is worsening and your temperature is above 100.5 Follow-up/Referrals: Mart Lowe MD [Primary Care Provider] - Diet: Heart Healthy Add Provider Instructions: You were admitted due to chest pain and were found to have pericarditis. As discussed, this acute inflammatory state of your heart wall is treated with medication, and close follow up. 3 new medications have been added to your regimen that you will be on: 1. Prednisone: Plan for long slow tapering course of prednisone over 6 weeks, as follows: Prednisone 20 mg x 7 days, then 15 mg x 7 days, then 10 mg x 7 days, then 5 mg x 7 days, then 2.5 mg x 14 days. 2. Continue daily colchicine for 3 months. 3. Acid veterinary technician - this is to be taken daily while on steroids, to prevent developing a stomach ulcer. STOP the following med: 1. Warfarin (coumadin). You have completed 6 weeks of required therapy. Upcoming follow up: 1. Please make an appointment with your PCP office to be seen in the next 3-7 days after discharge. 2. Keep your follow-up visit with Dr. Lopez of CT surgery at [facility] on 01/26/2019. 3. An outpatient echocardiogram is already tentatively scheduled for 02/11/2019 to be helpful in follow-up of the small pericardial effusion for patient should keep this appointment. 4. Patient should keep his upcoming visit with Mr. Haji of our practice is tentatively scheduled for 02/11/2019. At that time, they will reassess your response to prednisone therapy. Should your chest pain worsen, return and not controlled with tylenol, if you are feeling short of breath or very weak or are having palpitations, please call your sales incentive analyst office or return to the emergency room if you are concerned. Be well A Colby ROBBINS Prescriptions: New colchicine [Colcrys] 0.6 mg Tablet 0.6 mg PO BID 30 Days Qty: 60 RF: 3 omeprazole 40 mg capsule,delayed release(DR/EC) 40 mg PO DAILY 30 Days Qty: 30 RF: 1 prednisone 5 mg tablet See Rx Instructions .ROUTE .COMPLEX Qty: 56 RF: 0 Continued levothyroxine 50 mcg tablet 25 mg PO DAILY RF: 0 atorvastatin 40 mg Tablet 40 mg PO HS RF: 0 hydrochlorothiazide 25 mg Tablet 25 mg PO DAILY RF: 0 irbesartan 300 mg Tablet 150 mg PO DAILY RF: 0 Discontinued warfarin [Jantoven] 5 mg tablet 5 mg PO 2XWK RF: 0 warfarin [Jantoven] 5 mg tablet 2.5 mg PO 5XWK RF: 0 Stand-Alone Forms: Call Back Authorization, [facility] Discharge Orders: Discharge Order (Routine); Ordered 01/16/19 Ordered By: Priscilla Bowman Admission Data Admit Date/Time: 01/15/19 08:02 Attending Provider: Flip Lara Admit Provider: Marck Bowman Primary Care Provider: Mart Lowe Other Providers: Andrey Cano ; Manpreet Maloney Service: Telemetry Other Interventions: Discharge Summary Assessment (RN) Last Done: 01/16/19 10:52 Pending Studies at Discharge: No DC Date/Time DO NOT enter until pt leaves facility: 01/16/19 11:20 Supervising Physician Co-Signing Physician Notes I personally examined the patient and verified all bill points of history and exam, discussed case, and agree with decision making with Dr Bowman. Feeling better. Very pleased with his progress. Cardiology input greatly appreciated. Vitals noted, in general he is pleasant no distress. H EENT normocephalic atraumatic mucous membranes moist. Breathing is unlabored no accessory muscle use good effort. Skin shows no rashes no pallor or icterus. Pericarditisstable for home. Plan as above. Outpatient follow-up scheduled. Resident Activity Tracking Resident Involvement: Resident Care Provided Care Provided: Adult Hospital Medicine
[2019-01-16] MEDS ORDERED: WARFARIN SOD 2.5 MG TAB PO SCH (16:00)
== END 2019-01-16 11:20 | disposition home or self-care (01) ==
LOC: ED 03:36 → 2S 03:36

== ENCOUNTER 2019-09-19 22:11 | Observation (INO) ==
[2019-09-19] MEDS ORDERED: HYDROmorphone INJ 0.5 MG/0.5 ML SYR IV STA (22:27)
[2019-09-19 23:06] LABS: Basophils # (auto) 0.04 K/uL (0-0.2); Basophils % (auto) 0.4 %; Eosinophils # (auto) 0.15 K/uL (0-0.5); Eosinophils % (auto) 1.5 %; Hematocrit (blood only) 42.6 % (42-52); Hemoglobin 14.5 g/dL (14.0-18.0); Immature Granulocytes # (auto) 0.02 K/uL (0.00-0.02); Immature Granulocytes % (auto) 0.2 %; Lymphocytes # (auto) 1.73 K/uL (1.2-3.4); Lymphocytes % (auto) 17.7 %; Mean Corpuscular Hemoglobin 31.2 pg (25-34); Mean Corpuscular Volume 91.6 fL (80-100); Mean Platelet Volume 9.3 fL (7.4-10.4); Monocytes # (auto) 0.82 K/uL (0.11-0.59); Monocytes % (auto) 8.4 %; Neutrophils # (auto) 7.02 K/uL (1.4-6.5); Neutrophils % (auto) 71.8 %; Platelet Count 177 K/uL (130-400); RDW Coefficient of Variation 13.1 % (11.5-14.5); RDW Standard Deviation 43.3 fL (36.4-46.3); Red Blood Count 4.65 M/uL (4.7-6.1); White Blood Count 9.78 K/uL (4.8-10.8)
[2019-09-19 23:24] LABS: Alanine Aminotransferase 39 U/L (12-78); Albumin Level 3.8 gm/dl (3.4-5.0); Aspartate Aminotransferase 16 U/L (15-37); BUN Creatinine Ratio 17.3 (10-20); Blood Urea Nitrogen 15 mg/dl (7-18); C Reactive Protein < 0.29 mg/dl (0-0.29); Calcium 9.2 mg/dl (8.5-10.1); Carbon Dioxide 27 mmol/L (21-32); Chloride 108 mmol/L (98-107); Creatinine Clr Calc Pharmacy 95.8 ml/min; Est GFR (African American) 107.2; Est GFR (Non-African American) 92.5; Glucose 91 mg/dl (70-99); Lipase 75 U/L (73-393); Potassium 3.9 mmol/L (3.5-5.1); Sodium 141 mmol/L (136-145)
[2019-09-19 23:34] LABS: Albumin Globulin Ratio 1.1 (0.9-2); Alkaline Phosphatase 117 U/L (45-117); Bilirubin,Total 0.4 mg/dl (0.2-1); Globulin 3.5 gm/dl (2.5-4.0); Total Protein 7.3 gm/dl (6.4-8.2); Troponin I < 0.015 ng/ml (0-0.045)
--- NOTE | 2019-09-20 00:21 | Emergency Department Note ---
History of Present Illness General Chief complaint: Chest Pain Stated complaint: CHEST PAIN History of Present Illness Maximum Pain Intensity: 6 This 63-year-old presents to the ER complaining of chest pain who is a history of pericarditis Location: Left-sided chest Quality: Achy Severity: Moderate Duration: Today Timing: Symptoms started today Context: Symptoms got worse and patient came in Modifying factors: better with leaning forward; worse with laying down Patient follows with Dr. Edgar. He had pericarditis in the past and symptoms feel similar. Patient denies flulike illness, fever, chills, cough, congestion, dyspnea, abdominal pain, leg pain or swelling. Home Medications Home Medications Medication Instructions Recorded Confirmed Type irbesartan 300 mg PO DAILY 07/09/18 09/20/19 History levothyroxine 50 mg PO DAILY 01/15/19 09/20/19 History atorvastatin 40 mg tablet 40 mg PO HS #90 tab 04/18/19 09/20/19 Rx omeprazole 40 mg PO DAILY 09/20/19 09/20/19 History Allergies Allergy/AdvReac Type Severity Reaction Status Date / Time aspirin Allergy Intermediate BLEEDING Verified 09/20/19 00:10 morphine AdvReac Intermediate Vomiting Verified 09/20/19 00:10 Past Med/Surg History Medical History Acid reflux Anemia R/T BLEEDING HEMORRHOIDS Anxiety Chronic back pain Degenerative disc disease 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 HOSPITALIZED AT [facility]. NO SURGERY. GERD (gastroesophageal reflux disease) GI bleed R/T ASPIRIN Hearing deficit Heart murmur Hemorrhoids High blood pressure Hyperlipidemia Kidney stones Migraine Mitral valve regurgitation Temporomandibular joint disorder JAW CLICKS. NEVER LOCKED. Surgical History H/O knee surgery 1976. History of appendectomy History of appendectomy History of colonoscopy Hx of LASIK Hx of vasectomy Family History Father Glioblastoma Social History Preferred Language: Beninese Communication Ability: Effective Visual Impairment: No Limitations Hearing Ability: Use of Hearing Aid Seaman Officer Required: No Beliefs That Will Affect Care: None Current Living Situation: Spouse Feels Safe at Home: Yes Smoking Status: Never smoker Second Hand Exposure: No ; Hx Alcohol Use: No Hx Substance Use: No Review of Systems A total of 10 systems reviewed and were otherwise negative Physical Exam Vital Signs Vital Signs - 24 hr 09/19/19 22:14 09/19/19 23:06 09/19/19 23:09 Temperature 36.8 C Temperature Source Oral Pulse Rate 65 75 Pulse Rate from SpO2 Sensor 72 Respiratory Rate 18 12 Blood Pressure 170/114 H 176/105 H Blood Pressure Mean 132 119 Pulse Oximetry 97 97 97 Oxygen Delivery Method Room Air Sepsis Recent Fever Within 48 Hours No Sepsis New/Unexplained Change in Mental Status No Sepsis Action Taken by Nursing No Action Required 09/19/19 23:10 09/19/19 23:30 09/20/19 00:01 Temperature Temperature Source Pulse Rate 66 67 Pulse Rate from SpO2 Sensor 68 66 Respiratory Rate 17 19 Blood Pressure 149/96 H 151/96 H Blood Pressure Mean 99 100 Pulse Oximetry 97 94 95 Oxygen Delivery Method Room Air Sepsis Recent Fever Within 48 Hours Sepsis New/Unexplained Change in Mental Status Sepsis Action Taken by Nursing 09/20/19 00:25 09/20/19 01:00 09/20/19 01:30 Temperature Temperature Source Pulse Rate 65 62 Pulse Rate from SpO2 Sensor 63 65 62 Respiratory Rate 27 H 20 15 Blood Pressure 152/92 H 130/85 124/86 Blood Pressure Mean 103 93 95 Pulse Oximetry 96 92 93 Oxygen Delivery Method Sepsis Recent Fever Within 48 Hours Sepsis New/Unexplained Change in Mental Status Sepsis Action Taken by Nursing 09/20/19 02:00 09/20/19 02:30 Temperature Temperature Source Pulse Rate 58 L 63 Pulse Rate from SpO2 Sensor 58 L 63 Respiratory Rate 16 20 Blood Pressure 134/86 155/96 H Blood Pressure Mean 101 115 Pulse Oximetry 95 94 Oxygen Delivery Method Sepsis Recent Fever Within 48 Hours Sepsis New/Unexplained Change in Mental Status Sepsis Action Taken by Nursing VITALS: Vitals are noted on the nurse's note and reviewed by myself. Vital signs stable. GENERAL: Pleasant anxious appearing male, in no acute distress, nondiaphoretic, well-developed well-nourished. SKIN: Capillary reflex less than 2 seconds. HEENT: Normocephalic. PERRLA. EOMI. Nares patent. Mucous membranes moist. Neck is supple without nuchal rigidity. HEART: Regular rate and rhythm chest nontender to palpation LUNGS: Clear to auscultation bilaterally without wheezes, rales or rhonchi. No retractions or accessory muscle use. ABDOMEN: Positive bowel sounds x 4. Normal tympanic percussion. Soft, nontender, without masses or organomegaly. Cintron sign negative. No guarding or rebound tenderness. MUSCULOSKELETAL: No gross musculoskeletal defects. NEURO: Patient was alert and oriented to person place and time. Normal sensation to light and sharp touch. No focal neurological deficits. Course Administered Medications Ioversol (Optiray 320 125ml) 125 ml IV ONCE PRN PRN Reason: Interaction Checking Stop: 09/24/19 00:32 Last Admin: 09/20/19 00:33 Dose: 102 ml Documented by: [id number] Discontinued Medications Hydromorphone HCl (Dilaudid) 0.5 mg IV NOW STA Stop: 09/19/19 22:28 Last Admin: 09/19/19 23:01 Dose: 0.5 mg Documented by: [id number] Acetaminophen (Ofirmev) 1,000 mg in 100 mls @ 400 mls/hr IV NOW STA Stop: 09/20/19 00:55 Last Infusion: 09/20/19 01:05 Dose: 0 mls/hr Documented by: [id number] Admin: 09/20/19 00:48 Dose: 400 mls/hr Documented by: [id number] Medical Decision Making Medical Records Attestation: I reviewed the patient's medical records. Home Medications Current Medication List: was personally reviewed by me Laboratory Data Attestation: I reviewed the patient's lab results. Result diagrams: 09/19/19 22:49 09/19/19 22:49 Lab Results 09/19/19 09/19/19 09/19/19 Range/Units 22:49 22:49 22:49 WBC 9.78 (4.8-10.8) K/uL RBC 4.65 L (4.7-6.1) M/uL Hgb 14.5 (14.0-18.0) g/dL Hct 42.6 (42-52) % MCV 91.6 (80-100) fL MCH 31.2 (25-34) pg MCHC 34.0 (32-36) g/dL RDW Std Deviation 43.3 (36.4-46.3) fL RDW Coeff of Gregory 13.1 (11.5-14.5) % Plt Count 177 (130-400) K/uL MPV 9.3 (7.4-10.4) fL Immature Gran % (Auto) 0.2 % Neut % (Auto) 71.8 % Lymph % (Auto) 17.7 % [place] % (Auto) 8.4 % Eos % (Auto) 1.5 % Baso % (Auto) 0.4 % Immature Gran # (Auto) 0.02 (0.00-0.02) K/uL Neut # (Auto) 7.02 H (1.4-6.5) K/uL Lymph # (Auto) 1.73 (1.2-3.4) K/uL [place] # (Auto) 0.82 H (0.11-0.59) K/uL Eos # (Auto) 0.15 (0-0.5) K/uL Baso # (Auto) 0.04 (0-0.2) K/uL ESR 8 (0-14) mm/hr Sodium 141 (136-145) mmol/L Potassium 3.9 (3.5-5.1) mmol/L Chloride 108 H (98-107) mmol/L Carbon Dioxide 27 (21-32) mmol/L Anion Gap 6.0 (3-11) BUN 15 (7-18) mg/dl Creatinine 0.87 (0.6-1.4) mg/dl Est Cr Clr Drug Dosing 95.8 ml/min Est GFR ( Amer) 107.2 Est GFR (Non-Af Amer) 92.5 BUN/Creatinine Ratio 17.3 (10-20) Glucose 91 (70-99) mg/dl Calcium 9.2 (8.5-10.1) mg/dl Total Bilirubin 0.4 (0.2-1) mg/dl AST 16 (15-37) U/L ALT 39 (12-78) U/L Alkaline Phosphatase 117 (45-117) U/L POC Troponin I (0-0.045) ng/ml Troponin I < 0.015 (0-0.045) ng/ml C-Reactive Protein < 0.29 (0-0.29) mg/dl Total Protein 7.3 (6.4-8.2) gm/dl Albumin 3.8 (3.4-5.0) gm/dl Globulin 3.5 (2.5-4.0) gm/dl Albumin/Globulin Ratio 1.1 (0.9-2) Lipase 75 (73-393) U/L TSH 4.500 (0.300-4.500) uIu/ml 09/19/19 Range/Units 22:53 WBC (4.8-10.8) K/uL RBC (4.7-6.1) M/uL Hgb (14.0-18.0) g/dL Hct (42-52) % MCV (80-100) fL MCH (25-34) pg MCHC (32-36) g/dL RDW Std Deviation (36.4-46.3) fL RDW Coeff of Gregory (11.5-14.5) % Plt Count (130-400) K/uL MPV (7.4-10.4) fL Immature Gran % (Auto) % Neut % (Auto) % Lymph % (Auto) % [place] % (Auto) % Eos % (Auto) % Baso % (Auto) % Immature Gran # (Auto) (0.00-0.02) K/uL Neut # (Auto) (1.4-6.5) K/uL Lymph # (Auto) (1.2-3.4) K/uL [place] # (Auto) (0.11-0.59) K/uL Eos # (Auto) (0-0.5) K/uL Baso # (Auto) (0-0.2) K/uL ESR (0-14) mm/hr Sodium (136-145) mmol/L Potassium (3.5-5.1) mmol/L Chloride (98-107) mmol/L Carbon Dioxide (21-32) mmol/L Anion Gap (3-11) BUN (7-18) mg/dl Creatinine (0.6-1.4) mg/dl Est Cr Clr Drug Dosing ml/min Est GFR ( Amer) Est GFR (Non-Af Amer) BUN/Creatinine Ratio (10-20) Glucose (70-99) mg/dl Calcium (8.5-10.1) mg/dl Total Bilirubin (0.2-1) mg/dl AST (15-37) U/L ALT (12-78) U/L Alkaline Phosphatase (45-117) U/L POC Troponin I < 0.03 (0-0.045) ng/ml Troponin I (0-0.045) ng/ml C-Reactive Protein (0-0.29) mg/dl Total Protein (6.4-8.2) gm/dl Albumin (3.4-5.0) gm/dl Globulin (2.5-4.0) gm/dl Albumin/Globulin Ratio (0.9-2) Lipase (73-393) U/L TSH (0.300-4.500) uIu/ml Imaging Data Attestation: I personally reviewed and interpreted this imaging study as follows: Blood Pressure Blood Pressure Findings: Elevated blood pressure Blood Pressure Disposition: Referred to patients primary care provider [facility] Narrative Prior records/ancillary studies reviewed. Triage Nursing notes reviewed. Additional history obtained from family. The patient's history was concerning for chest pain. Differential diagnosis: Etiologies such as cardiac ischemia, aortic dissection, pulmonary embolism, pneumonia, pneumothorax, musculoskeletal, infections, pericarditis, myocarditis, esophageal rupture, gastrointestinal, as well as others were entertained. Physical examination: As above. ER treatment provided: Dilaudid On reassessment the patient felt better. Diagnostic interpretation by me: EKG ordered for chest pain The electrocardiogram was negative for pathologic change. Normal sinus, normal intervals, Q wave in lead III, T wave flattening in 1 and aVL, rate of 66. EKG compared to prior EKG with no acute changes noted. Impression normal sinus rhythm with T wave flattening in lead I aVL interpreted by myself I think arrhythmia is unlikely. EKG shows normal sinus rhythm with no interval abnormalities such as QT prolongation or WPW. There are no findings to suggest Brugada syndrome. Cardiac monitoring in the emergency department reveals no tachycardic or bradycardic dysrhythmia. Hypertrophic cardiomyopathy was considered but there are no clear historical elements pointing toward this. EKG is not suggestive. The QRS voltage is not extremely large and there are no suggestive Q waves. The labs revealed negative troponin. Negative inflammatory markers Imaging studies: Chest x-ray with no acute consolidation, pneumothorax or free air per my interpretation CTA CHEST: No central pulmonary embolus. Cardiomegaly and surgical changes. Moderate hiatal hernia. Radiologist: Onur Marques M.D. HEART SCORE: Hx: high/mod/low suspicion: 0 ECG: ST depression/nonspecific changes/normal: 1 Age: Greater than 65/45-64/less than 45: 1 Risk factors: (Hypertension, hyperlipidemia, diabetes, coronary disease, tobacco use, cocaine use): 1 Troponin: Greater than 2 times normal limits/1-2 times normal limits/normal: 0 Total: 3 Consultation: A consultation was placed with the hospitalist, Dr. Connolly. The case was discussed and diagnostics were reviewed. The patient was evaluated in the ER for further treatment. Exam and history seem consistent with chest pain with history of pericarditis. Inflammatory markers are negative. First troponin is negative. Patient is agreeable to treatment plan of admission. Medicine is consulted. By the evaluation outlined above emergent etiologies such as aortic dissection, pulmonary embolism, pneumonia, pneumothorax, gastrointestinal, as well as others were deemed relatively unlikely. The pt informed about the findings as listed above. All questions were answered and pleased with the treatment. Case reviewed with my attending The chart was completed utilizing [employer] Speech voice recognition software. Grammatical errors, random word insertions, pronoun errors, and incomplete sentences are an occassional consequence of this system due to software limitations, ambient noise, and hardware issues. Any formal questions or concerns about the content, text, or information contained within the body of this dictation should be directly addressed to the physician mobile unit assistant for clarification. Impression & Plan Chest pain, History of pericarditis Discharge Plan Visit Data Chief Complaint: Chest Pain Stated Complaint: CHEST PAIN ED Provider: Nhi Rosenberg ED Midlevel Provider: Laura Lew Discharge Problem: Chest pain, History of pericarditis Patient Disposition: Being Evaluated by Hospitalist Condition: Good Forms Stand Alone Forms: Call Back Authorization, [facility] Prescriptions Prescriptions: No Action atorvastatin 40 mg tablet 40 mg PO HS Qty: 90 RF: 3 levothyroxine 50 mcg tablet 50 mg PO DAILY RF: 0 omeprazole 40 mg capsule,delayed release(DR/EC) 40 mg PO DAILY RF: 0 irbesartan 300 mg Tablet 300 mg PO DAILY RF: 0 Referrals Referrals: Mart Lowe MD [Primary Care Provider] - Discharge Problem: Chest pain Qualifiers: Chest pain type: unspecified Qualified Code(s): R07.9 - Chest pain, unspecified
[2019-09-20] MEDS ORDERED: OPTIRAY 320 125ml IV PRN (00:33)
[2019-09-20] MEDS ORDERED: ACETAMINOPHEN 1,000 MG/100 ML VIAL IV STA (00:41)
--- NOTE | 2019-09-20 03:13 | History & Physical Report ---
Date of Service September 20, 2019 Assessment & Plan (1) Chest pain: Recurrent chest pain/history of pericarditis/history of pericardial effusion/history of mitral valve repair- Patient symptoms did completely resolve after admission last year and remained on colchicine post discharge. Patient reports symptoms this time are very similar to his presentation of pericarditis. The patient will be admitted to telemetry for serial cardiac enzymes, serial EKG's, cardiac rhythm monitoring and a 2-D echocardiogram with Dopplers. We will order systemic work-up since this may be a recurrence: Sed rate, TARIK, uric acid, rheumatoid factor, BRYNN level, Lyme disease, coxsackie B virus, etc. Consult his rn clinical documentation specialist Dr. Maloney Present on Admission?: Yes (2) History of pericarditis: See above Present on Admission?: Yes (3) Pericardial effusion: See above Present on Admission?: Yes (4) History of mitral valve repair: See above Present on Admission?: Yes (5) Hypothyroidism: Continue levothyroxine 50 mcg daily Present on Admission?: Yes (6) Hyperlipidemia: Continue atorvastatin 40 mg every evening Present on Admission?: Yes (7) HTN (hypertension): Continue irbesartan 300 mg daily Present on Admission?: Yes (8) GERD (gastroesophageal reflux disease): Continue omeprazole 40 mg daily Present on Admission?: Yes History of Present Illness Chief Complaint: The patient presents to the emergency department with pain on the left side of his chest that began in the morning of 09/19, and persisted throughout the day. Primary Care Provider: Jarrod Lowe MD Patient is a 63-year-old male with a past medical history including pericarditis, hypothyroidism, pericardial effusion, mitral valve repair, hyperlipidemia, hypertension and GERD, who presents to the emergency department with acute onset of left-sided chest discomfort similar to that of his previous episode of pericarditis. He does have some generalized joint pains that have been ongoing. He has not had any recent illnesses. He has not had recent travels or sick exposures. Allergies Allergy/AdvReac Type Severity Reaction Status Date / Time aspirin Allergy Intermediate BLEEDING Verified 09/20/19 00:10 morphine AdvReac Intermediate Vomiting Verified 09/20/19 00:10 Home Medications Home Medications Medication Instructions Recorded Confirmed Type irbesartan 300 mg PO DAILY 07/09/18 09/20/19 History levothyroxine 50 mg PO DAILY 01/15/19 09/20/19 History atorvastatin 40 mg tablet 40 mg PO HS #90 tab 04/18/19 09/20/19 Rx omeprazole 40 mg PO DAILY 09/20/19 09/20/19 History Past Med/Surg History Medical History Acid reflux Anemia R/T BLEEDING HEMORRHOIDS Anxiety Chronic back pain Degenerative disc disease 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 HOSPITALIZED AT [facility]. NO SURGERY. GERD (gastroesophageal reflux disease) GI bleed R/T ASPIRIN Hearing deficit Heart murmur Hemorrhoids High blood pressure Hyperlipidemia Kidney stones Migraine Mitral valve regurgitation Temporomandibular joint disorder JAW CLICKS. NEVER LOCKED. Surgical History H/O knee surgery 1976. 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 Beliefs That Will Affect Care: None Current Living Situation: Spouse Feels Safe at Home: Yes Smoking Status: Never smoker Second Hand Exposure: No ; Hx Alcohol Use: No Hx Substance Use: No Review of Systems Review of Systems: The patient denies palpitations, shortness of breath, dyspnea on exertion, cough, lower extremity swelling, sore throat, fevers, chills, sweats, weight change, fatigue, nausea, vomiting, diarrhea , constipation, abdominal pain, pelvic pain, blood in urine or stool, dysuria, urinary frequency or urgency, lightheadedness, dizziness, headache, memory loss, loss of consciousness, rash, abnormal bruising or bleeding, imbalance, focal or generalized weakness, numbness or tingling in arms or legs, or night sweats. The review of systems is otherwise negative other than for that already noted above, and at least 10 systems have been reviewed. Physical Exam Physical Exam: The patient is awake, alert and oriented 3, well developed and well nourished, normocephalic and atraumatic, sitting upright in bed and in no acute distress. HEENT--PERRL, EOMI, mucous membranes and oropharynx dry. Neck--supple. No JVD. No bruits. Thyroid normal, trachea midline, no adenopathy. Heart--normal S1 and S2. No murmurs, rubs or gallops. Lungs--clear bilaterally, no respiratory distress, no accessory muscle use. Abdomen--normal bowel sounds and soft. Nontender. Nondistended. Extremities--no cyanosis or clubbing. No edema. There are good distal pulses b/l. Dermatologic--normal skin turgor, normal color, no abnormal lymph nodes, no rash. Neurologic--cranial nerves II through XII grossly intact. Rheumatologic--normal range of motion. Psychiatric--normal affect. Results & Data Vital Signs (Past 12 Hours) Vital Signs Temp Pulse Resp BP Pulse Ox 09/20/19 02:30 63 20 155/96 H 94 09/20/19 02:00 58 L 16 134/86 95 09/20/19 01:30 62 15 124/86 93 09/20/19 01:00 65 20 130/85 92 09/20/19 00:25 27 H 152/92 H 96 09/20/19 00:01 67 19 151/96 H 95 09/19/19 23:30 66 17 149/96 H 94 09/19/19 23:10 97 09/19/19 23:09 97 09/19/19 23:06 75 12 176/105 H 97 09/19/19 22:14 98.2 F 65 18 170/114 H 97 Laboratory Results Laboratory Results WBC 9.78 K/uL (4.8-10.8) 09/19/19 22:49 RBC 4.65 M/uL (4.7-6.1) L 09/19/19 22:49 Hgb 14.5 g/dL (14.0-18.0) 09/19/19 22:49 Hct 42.6 % (42-52) 09/19/19 22:49 MCV 91.6 fL (80-100) 09/19/19 22:49 MCH 31.2 pg (25-34) 09/19/19 22:49 MCHC 34.0 g/dL (32-36) 09/19/19 22:49 RDW Std Deviation 43.3 fL (36.4-46.3) 09/19/19 22:49 RDW Coeff of Gregory 13.1 % (11.5-14.5) 09/19/19 22:49 Plt Count 177 K/uL (130-400) 09/19/19 22:49 MPV 9.3 fL (7.4-10.4) 09/19/19 22:49 Immature Gran % (Auto) 0.2 % 09/19/19 22:49 Neut % (Auto) 71.8 % 09/19/19 22:49 Lymph % (Auto) 17.7 % 09/19/19 22:49 Coos % (Auto) 8.4 % 09/19/19 22:49 Eos % (Auto) 1.5 % 09/19/19 22:49 Baso % (Auto) 0.4 % 09/19/19 22:49 Immature Gran # (Auto) 0.02 K/uL (0.00-0.02) 09/19/19 22:49 Neut # (Auto) 7.02 K/uL (1.4-6.5) H 09/19/19 22:49 Lymph # (Auto) 1.73 K/uL (1.2-3.4) 09/19/19 22:49 Coos # (Auto) 0.82 K/uL (0.11-0.59) H 09/19/19 22:49 Eos # (Auto) 0.15 K/uL (0-0.5) 09/19/19 22:49 Baso # (Auto) 0.04 K/uL (0-0.2) 09/19/19 22:49 ESR 8 mm/hr (0-14) 09/19/19 22:49 Sodium 141 mmol/L (136-145) 09/19/19 22:49 Potassium 3.9 mmol/L (3.5-5.1) 09/19/19 22:49 Chloride 108 mmol/L (98-107) H 09/19/19 22:49 Carbon Dioxide 27 mmol/L (21-32) 09/19/19 22:49 Anion Gap 6.0 (3-11) 09/19/19 22:49 BUN 15 mg/dl (7-18) 09/19/19 22:49 Creatinine 0.87 mg/dl (0.6-1.4) 09/19/19 22:49 Est Cr Clr Drug Dosing 95.8 ml/min 09/19/19 22:49 Est GFR ( Amer) 107.2 09/19/19 22:49 Est GFR (Non-Af Amer) 92.5 09/19/19 22:49 BUN/Creatinine Ratio 17.3 (10-20) 09/19/19 22:49 Glucose 91 mg/dl (70-99) 09/19/19 22:49 Calcium 9.2 mg/dl (8.5-10.1) 09/19/19 22:49 Total Bilirubin 0.4 mg/dl (0.2-1) 09/19/19 22:49 AST 16 U/L (15-37) 09/19/19 22:49 ALT 39 U/L (12-78) 09/19/19 22:49 Alkaline Phosphatase 117 U/L (45-117) 09/19/19 22:49 POC Troponin I < 0.03 ng/ml (0-0.045) 09/19/19 22:53 Troponin I < 0.015 ng/ml (0-0.045) 09/19/19 22:49 C-Reactive Protein < 0.29 mg/dl (0-0.29) 09/19/19 22:49 Total Protein 7.3 gm/dl (6.4-8.2) 09/19/19 22:49 Albumin 3.8 gm/dl (3.4-5.0) 09/19/19 22:49 Globulin 3.5 gm/dl (2.5-4.0) 09/19/19 22:49 Albumin/Globulin Ratio 1.1 (0.9-2) 09/19/19 22:49 Lipase 75 U/L (73-393) 09/19/19 22:49 TSH 4.500 uIu/ml (0.300-4.500) 09/19/19 22:49 Code Status & VTE Plan Code Status Full code VTE Prophylaxis Plan VTE Prophylaxis will be ordered: Yes PG Care Time/CCT Total # of Minutes Spent Total Time Spent with Patient: Total time spent is greater than 50% in coordination of care (as documented) at patient's floor/unit and/or counseling patient: (1) Chest pain Chest pain type: unspecified Qualified Code(s): R07.9 - Chest pain, unspecified
[2019-09-20 04:00] LABS: Lyme Ab IgG w/WB Rflx Negative (Negative); Lyme Ab IgM w/WB Rflx Negative (Negative)
[2019-09-20] MEDS ORDERED: MAGNESIUM HYDROXIDE SUSP 30 ML UDC PO PRN (04:23)
[2019-09-20] MEDS ORDERED: ONDANSETRON INJ 2 MG/ML 2 ML VIAL IV PRN (04:23)
[2019-09-20] MEDS ORDERED: COLCHICINE 0.6 MG TAB PO ONE (04:23)
[2019-09-20] MEDS ORDERED: ALUMINUM/MAGNESIUM SUSP 30 ML UDC PO PRN (04:23)
[2019-09-20 04:58] LABS: Basophils # (auto) 0.02 K/uL (0-0.2); Basophils % (auto) 0.2 %; Eosinophils # (auto) 0.16 K/uL (0-0.5); Eosinophils % (auto) 1.8 %; Hematocrit (blood only) 40.3 % (42-52); Hemoglobin 13.6 g/dL (14.0-18.0); Immature Granulocytes # (auto) 0.02 K/uL (0.00-0.02); Immature Granulocytes % (auto) 0.2 %; Lymphocytes # (auto) 2.04 K/uL (1.2-3.4); Lymphocytes % (auto) 23.5 %; Mean Corpuscular Hemoglobin 30.7 pg (25-34); Mean Corpuscular Hgb Conc 33.7 g/dL (32-36); Monocytes # (auto) 0.97 K/uL (0.11-0.59); Monocytes % (auto) 11.2 %; Neutrophils # (auto) 5.46 K/uL (1.4-6.5); Neutrophils % (auto) 63.1 %; Platelet Count 158 K/uL (130-400); RDW Coefficient of Variation 13.2 % (11.5-14.5); RDW Standard Deviation 43.3 fL (36.4-46.3); Red Blood Count 4.43 M/uL (4.7-6.1); White Blood Count 8.67 K/uL (4.8-10.8)
[2019-09-20 05:16] LABS: Partial Thromboplastin Time 26.3 Seconds (21.0-31.0); Prothrombin Time 10.2 Seconds (9.0-12.0)
[2019-09-20 05:32] LABS: Magnesium 1.9 mg/dl (1.8-2.4); Troponin I < 0.015 ng/ml (0-0.045)
--- NOTE | 2019-09-20 06:44 | CT Scan Report ---
CT ANGIOGRAPHY OF THE CHEST, PULMONARY EMBOLUS PROTOCOL CLINICAL HISTORY: Left-sided chest pain. Shortness of breath. Evaluate for pulmonary embolus. COMPARISON STUDY: Chest CT January 15, 2019. Chest radiograph September 19, 2019. TECHNIQUE: Following IV administration of 102 mL of Optiray-320, helical axial images of the chest we re obtained utilizing the pulmonary embolus protocol. Maximal intensity projections and sagittal and coronal reformats were viewed on an independent 3D workstation. IV contrast was administered withou t complication. Automated exposure control was utilized for the study. A dose lowering technique wa s utilized adhering to the principles of ALARA. CT DOSE: 504.59 mGy.cm FINDINGS: There are postoperative findings from median sternotomy. Prosthetic mitral valve is noted as well as a left atrial appendage occluder device. The heart is moderately enlarged. There is no per icardial effusion. A moderate sized hiatal hernia is present. No pulmonary emboli are identified. The re is no consolidation to suggest pneumonia. Groundglass opacities favor atelectasis. The central air ways are patent. There is no pneumothorax or pleural effusion. Bony thorax and upper abdomen are unre markable. IMPRESSION: 1. No pulmonary emboli identified. 2. No acute findings within the chest. 3. Moderate cardiomegaly. 4. Moderate-sized hiatal hernia. ACT 112: Negative or not required by law. Electronically signed by: Dariusz Bhakta M.D. 09/20/2019 6:43 AM
--- NOTE | 2019-09-20 06:56 | XRay Report ---
XR chest 1V portable CLINICAL HISTORY: Chest Pain COMPARISON STUDY: Chest radiograph and chest CT January 15, 2019. FINDINGS: Lung volumes are normal. Moderate cardiomegaly. There are median sternotomy wires, prosthet ic mitral valve and left atrial appendage occluder device. Linear left midlung opacity suggests atele ctasis. There is no consolidation or evidence for pulmonary edema. IMPRESSION: No acute cardiopulmonary findings. ACT 112: Negative or not required by law. Electronically signed by: Dariusz Bhakta M.D. 09/20/2019 6:55 AM
[2019-09-20] MEDS: IRBESARTAN 150 MG TAB PO SCH (07:41)
[2019-09-20] MEDS: PANTOprazole 40 MG TAB PO SCH (07:41)
--- NOTE | 2019-09-20 10:01 | Electrocardiogram Report ---
Test Reason : Blood Pressure : / mmHG Vent. Rate : 066 BPM Atrial Rate : 066 BPM P-R Int : 154 ms QRS Dur : 086 ms QT Int : 406 ms P-R-T Axes : -03 016 095 degrees QTc Int : 425 ms Normal sinus rhythm Cannot rule out Inferior infarct , age undetermined Abnormal ECG When compared with ECG of 15-JAN-2019 03:48, No significant change was found Confirmed by Brock Lynn ([id number]) on 09/20/2019 10:01:27 AM Referred By: REFERRED SELF Confirmed By:Brock Lynn
[2019-09-20] MEDS ORDERED: methylPREDNISolone 60 MG in SYRINGE 0 ML IV ONE (12:06)
--- NOTE | 2019-09-20 12:06 | Cardiology Consultation ---
Date of Consultation September 20, 2019 Assessment & Plan (1) Pericarditis: Although the patient's electrocardiogram reveals no suggestion of pericarditis, and his inflammatory markers including ESR and C-reactive protein are within normal limits, his clinical symptoms are certainly suggestive of pericarditis. A transthoracic echocardiogram has been performed which will be reviewed. He has ongoing resting discomfort, and I think the likelihood of this being angina is low given normal troponin, and previous history of normal coronary arteries on cardiac catheterization performed less than a year ago. Agree with reinitiation of colchicine which had already been started by the admitting team. As noted prior, he was felt to be a poor candidate for high-dose aspirin therapy or ibuprofen therapy, and therefore he received a tapering dose of steroids which was effective previously. We will therefore provide a dose of IV Solu-Medrol followed by oral prednisone, dosing regimen similar to last time, 20 mg and tapering down to 2.5 mg over 6- week course. Patient to remain in the hospital for the time being pending improvement of his discomfort, would keep him on telemetry. History of Present Illness Attending Physician: Andrey Cano MD History of Present Illness Brock Hogue is a 63 year old male seen in cardiology consultation per the request of Dr Swartz for the evaluation of chest pain. The patient is well-known to the undersigned as I have followed him on an inpatient and outpatient basis. The patient states that he was in his normal state of health until he got up to go to work yesterday, and at 8 AM while at work he noted a left-sided chest discomfort underneath his left breast for which she took 2 Tylenol. He does not believe he did anything out of the ordinary to strain any muscles. His symptoms continued throughout the day, and were reminiscent of his previous symptoms that resolved with treatment for postoperative pericarditis. He notes that he had ongoing mild chest discomfort all throughout the day yesterday, and continues this morning. It is worse with a deep breath, and worse when he lays down either supine, or even on his left side such as when he had his echocardiogram today, and feels better if he has shallow breathing, and sits straight up. He denies any cough, denies any recent infectious type symptoms. Past Medical / Surgical History: 1.Severe mitral regurgitation status post December 02, 2018 mitral valve repair with a 34 mm Physio II ring, quadrangular resection of P1, left atrial appendage clip, and PFO closure by Dr. Lopez on December 02, 2018. 2.Postoperative course complicated by anemia which did not require transfusion of packed red blood cells, postoperative atrial fibrillation, and sinus node dysfunction. Patient with symptomatic paroxysmal atrial fibrillation (fluttering sensation) with transient junctional rhythm (lightheadedness) with termination of the atrial fibrillation while on amiodarone. He was was prescribed amiodarone and Coumadin anticoagulation and discharged in normal sinus rhythm. 3.Hypertension 4.Dyslipidemia 5.Impaired fasting glucose 6.Iron deficiency anemia 7.Esophageal reflux disease 8.Lactose deficiency 9.Depression 10.Degenerative disc disease, lumbar region 11.External hemorrhoids 12.Migraine headaches 13.Appendectomy 14.Hemorrhoidectomy 15.Knee surgery 16.Colonoscopy 17. Angiographically normal coronary arteries on preoperative cardiac catheterization, November,. 18. Patient had previously been treated for postoperative pericarditis in Jan, 2019, having completed a course of colchicine and a tapering dose of prednisone at that time. Allergies Allergy/AdvReac Type Severity Reaction Status Date / Time aspirin Allergy Intermediate BLEEDING Verified 09/20/19 00:10 morphine AdvReac Intermediate Vomiting Verified 09/20/19 00:10 Home Medications Home Medications Medication Instructions Recorded Confirmed Type irbesartan 300 mg PO DAILY 07/09/18 09/20/19 History levothyroxine 50 mcg PO DAILY 01/15/19 09/20/19 History atorvastatin 40 mg tablet 40 mg PO HS #90 tab 04/18/19 09/20/19 Rx omeprazole 40 mg PO DAILY 09/20/19 09/20/19 History Patient History Medical History Acid reflux Anemia R/T BLEEDING HEMORRHOIDS Anxiety Chronic back pain Degenerative disc disease 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 HOSPITALIZED AT [facility]. NO SURGERY. GERD (gastroesophageal reflux disease) GI bleed R/T ASPIRIN Hearing deficit Heart murmur Hemorrhoids High blood pressure Hyperlipidemia Kidney stones Migraine Mitral valve regurgitation Temporomandibular joint disorder JAW CLICKS. NEVER LOCKED. Surgical History H/O knee surgery 1976. 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 Beliefs That Will Affect Care: None Current Living Situation: Spouse Feels Safe at Home: Yes Smoking Status: Never smoker Second Hand Exposure: No ; Hx Alcohol Use: No Hx Substance Use: No Review of Systems Review of Systems: All systems reviewed & are unremarkable except as noted in HPI & below Physical Exam Physical Exam: Temp Pulse Resp BP Pulse Ox 36.7 C 63 19 147/102 H 93 09/20/19 07:30 09/20/19 09:00 09/20/19 09:00 09/20/19 07:43 09/20/19 09:00 Constitutional: WD/WN, vitals as above Respiratory: normal respiratory effort, lungs clear to auscultation Cardiovascular: RRR, no murmur, no edema Gastrointestinal (Abdomen): normal bowel sounds, soft, nontender, no hepatosplenomegaly Neurologic: PERRL, EOMI, accommodation nl, no face palsy, no dysarthria Results & Data Vital Signs (Past 12 Hours) Vital Signs Temp Pulse Pulse Resp BP BP Pulse Ox 09/20/19 09:00 63 19 93 09/20/19 08:30 71 20 94 09/20/19 08:00 72 14 95 09/20/19 07:43 70 16 147/102 H 96 09/20/19 07:30 36.7 C 66 21 09/20/19 07:00 58 L 16 09/20/19 04:27 55 L 09/20/19 03:58 36.4 C L 61 20 157/85 H 95 09/20/19 03:30 62 15 133/96 95 09/20/19 03:00 57 L 13 129/88 95 09/20/19 02:30 63 20 155/96 H 94 09/20/19 02:00 58 L 16 134/86 95 09/20/19 01:30 62 15 124/86 93 09/20/19 01:00 65 20 130/85 92 09/20/19 00:25 27 H 152/92 H 96 09/20/19 00:01 67 19 151/96 H 95 Pulse Ox 09/20/19 09:00 09/20/19 08:30 09/20/19 08:00 09/20/19 07:43 09/20/19 07:30 09/20/19 07:00 09/20/19 04:27 93 09/20/19 03:58 09/20/19 03:30 09/20/19 03:00 09/20/19 02:30 09/20/19 02:00 09/20/19 01:30 09/20/19 01:00 09/20/19 00:25 09/20/19 00:01 Laboratory Results Troponin has been negative x2 thus far TSH 09/19/2019 was within normal meds at 4.5 IU/L. C-reactive protein performed 09/19/2019 was negative at less than 0.29 mg/dL Erythrocyte sedimentation rate normal at 8 mm/h Diagnostic Findings EKG performed 09/19/2019 at 2116 revealed normal sinus rhythm at 66 bpm, unchanged compared to 01/15/2019, without significant ST changes to suggest ischemia or pericarditis at present. Medications Administered Current Inpatient Medications Acetaminophen (Tylenol) 650 mg PO Q4H PRN PRN Reason: Pain or Fever Stop: 10/20/19 04:22 Al Hydrox/Mg Hydrox/Simethicone (Maalox) 15 ml PO Q4H PRN PRN Reason: Dyspepsia Stop: 10/20/19 04:22 Atorvastatin Calcium (Lipitor) 40 mg PO HS ERICK Stop: 10/20/19 20:59 Colchicine (Colcrys) 0.6 mg PO BID17 ERICK Stop: 10/20/19 16:59 Ioversol (Optiray 320 125ml) 125 ml IV ONCE PRN PRN Reason: Interaction Checking Stop: 09/24/19 00:32 Last Admin: 09/20/19 00:33 Dose: 102 ml Documented by: Irbesartan (Avapro) 300 mg PO DAILY ERICK Stop: 10/20/19 08:59 Last Admin: 09/20/19 07:41 Dose: 300 mg Documented by: Magnesium Hydroxide (Milk Of Magnesia) 30 ml PO Q12H PRN PRN Reason: Constipation Stop: 10/20/19 04:22 Ondansetron HCl (Zofran) 4 mg IV Q6H PRN PRN Reason: Nausea Stop: 10/20/19 04:22 Pantoprazole Sodium (Protonix) 40 mg PO DAILY ERICK Stop: 10/20/19 08:59 Last Admin: 09/20/19 07:41 Dose: 40 mg Documented by:
[2019-09-20] MEDS ORDERED: MoRPHine SULFATE 2 MG/ML CARP IV PRN (12:50)
--- NOTE | 2019-09-20 12:51 | History & Physical Bridge Note ---
Date of Service September 20, 2019 History & Physical Bridge Note Patient seen and examined today. Still having chest pain. Seen by cardiology. Echo pending. - Continue steroids & colchicine. - Pain control
[2019-09-20] MEDS: ACETAMINOPHEN 325 MG TAB PO PRN ×2 (16:11→20:20)
[2019-09-20] MEDS: COLCHICINE 0.6 MG TAB PO SCH (16:17)
[2019-09-20] MEDS ORDERED: ATORVASTATIN 40 MG TAB PO SCH (21:00)
[2019-09-21 04:44] LABS: Basophils # (auto) 0.01 K/uL (0-0.2); Basophils % (auto) 0.1 %; Hematocrit (blood only) 41.8 % (42-52); Hemoglobin 14.5 g/dL (14.0-18.0); Immature Granulocytes # (auto) 0.05 K/uL (0.00-0.02); Immature Granulocytes % (auto) 0.4 %; Lymphocytes # (auto) 0.88 K/uL (1.2-3.4); Lymphocytes % (auto) 6.4 %; Mean Corpuscular Hemoglobin 31.5 pg (25-34); Mean Corpuscular Hgb Conc 34.7 g/dL (32-36); Mean Corpuscular Volume 90.7 fL (80-100); Mean Platelet Volume 9.7 fL (7.4-10.4); Monocytes % (auto) 4.4 %; Neutrophils # (auto) 12.18 K/uL (1.4-6.5); Neutrophils % (auto) 88.7 %; Platelet Count 181 K/uL (130-400); RDW Coefficient of Variation 13.3 % (11.5-14.5); RDW Standard Deviation 43.7 fL (36.4-46.3); Red Blood Count 4.61 M/uL (4.7-6.1); White Blood Count 13.72 K/uL (4.8-10.8)
[2019-09-21 05:03] LABS: Prothrombin Time 10.3 Seconds (9.0-12.0)
[2019-09-21] MEDS: PANTOprazole 40 MG TAB PO SCH (07:57)
[2019-09-21] MEDS: COLCHICINE 0.6 MG TAB PO SCH (07:57)
[2019-09-21] MEDS: IRBESARTAN 150 MG TAB PO SCH (07:57)
[2019-09-21] MEDS ORDERED: predniSONE 20 MG TAB PO SCH (09:00)
--- NOTE | 2019-09-21 10:13 | Electrocardiogram Report ---
Test Reason : Blood Pressure : / mmHG Vent. Rate : 064 BPM Atrial Rate : 064 BPM P-R Int : 162 ms QRS Dur : 078 ms QT Int : 416 ms P-R-T Axes : 035 023 094 degrees QTc Int : 429 ms Normal sinus rhythm Nonspecific T wave abnormality Abnormal ECG When compared with ECG of 19-SEP-2019 22:16, Minimal criteria for Inferior infarct are no longer Present Confirmed by Brock Lynn ([id number]) on 09/21/2019 10:13:18 AM Referred By: REFERRED SELF Confirmed By:Brock Lynn
[2019-09-21 10:45] LABS: BUN Creatinine Ratio 20.6 (10-20); Calcium 9.7 mg/dl (8.5-10.1); Creatinine Clr Calc Pharmacy 87.3 ml/min; Est GFR (African American) 100.3; Est GFR (Non-African American) 86.5; Potassium 4.3 mmol/L (3.5-5.1)
--- NOTE | 2019-09-21 12:06 | Cardiology Progress Note ---
Date of Service September 21, 2019 Assessment & Plan (1) Pericarditis: (2) History of mitral valve repair: Although EKG and inflammatory markers do no suggest pericarditis, symptoms certainly do. EKG this am reveals SR at [address] abnormality, similar to baseline. Echo revealed no pericardial effusion, normal mitral valve repair function. Stable for discharge on tapering prednisone 20 mg down to 2.5 mg over 6 weeks, colchicine 0.6 mg BID for 2 months. Pt to call cardio office for follow up visit. Case discussed by phone with Dr Mckayla Cano. Subjective Pt feeling well. Symptoms resolved with solumedrol and colchicine yesterday. Telemetry reveals SR , no arrhythmias. He is eager for discharge. Review of Systems Review of Systems: All systems reviewed & are unremarkable except as noted in HPI & below Physical Exam Physical Exam: Temp Pulse Resp BP Pulse Ox 36.5 C 65 19 132/86 95 09/21/19 08:24 09/21/19 10:00 09/21/19 10:00 09/21/19 08:24 09/21/19 08:24 Constitutional: WD/WN, vitals as above Respiratory: normal respiratory effort, lungs clear to auscultation Cardiovascular: RRR, no murmur, no edema Gastrointestinal (Abdomen): normal bowel sounds, soft, nontender, no hepatosplenomegaly Neurologic: PERRL, EOMI, accommodation nl, no face palsy, no dysarthria Results & Data Vital Signs (Past 12 Hours) Vital Signs Temp Pulse Pulse Resp BP BP Pulse Ox 09/21/19 10:00 65 19 09/21/19 08:24 36.5 C 69 20 132/86 95 09/21/19 08:22 36.5 C 69 20 132/86 95 09/21/19 08:04 36.5 C 71 20 133/80 95 09/21/19 04:00 36.5 C 69 16 132/86 93
--- NOTE | 2019-09-21 18:50 | Discharge Summary ---
Date of Service September 21, 2019 Admission HPI Per Admitting Provider Patient is a 63-year-old male with a past medical history including pericarditis, hypothyroidism, pericardial effusion, mitral valve repair, hyperlipidemia, hypertension and GERD, who presents to the emergency department with acute onset of left-sided chest discomfort similar to that of his previous episode of pericarditis. He does have some generalized joint pains that have been ongoing. He has not had any recent illnesses. He has not had recent travels or sick exposures. Principal Diagnosis Recurrent pericarditis Discharge Exam Constitutional WD/WN, vitals as above Eyes EOM intact bilaterally; no conjunctival abnormality ENMT external ear and nose normal, oropharynx normal Neck trachea midline, no thyromegaly normal visual inspection Respiratory normal respiratory effort, lungs clear to auscultation no respiratory distress Cardiovascular RRR, no murmur, no edema Gastrointestinal (Abdomen) Inspection/Auscultation: abdomen normal to inspection; abdomen not distended Musculoskeletal no cyanosis or clubbing, extremities motor strength 5/5 Skin no rashes, warm and dry Neurologic moves all extremities and awake Psychiatric Orientation: alert, oriented to person and cooperative Discharge Data Allergies Allergy/AdvReac Type Severity Reaction Status Date / Time aspirin Allergy Intermediate BLEEDING Verified 09/20/19 00:10 morphine AdvReac Intermediate Vomiting Verified 09/20/19 00:10 Consultations 09/20/19 01:46 ED Decision to Admit Stat 09/20/19 04:23 Consult Cardiology Routine Consult Case Management - Discharge Planning Routine Ordered Studies 09/19/19 23:37 CT angio chest PE protocol Urgent Hospital Course (1) Chest pain: Recurrent pericarditis. Echo showed thickened pericardium. The patient f elt immediately (like 1 hour) better after IV steroids and colchicine. - Discharged on 6-week taper of prednisone and colchicine. He was instructed to keep taking the colchicine until he saw Dr. Maloney in the office. (2) History of pericarditis: See above (3) Pericardial effusion: See above (4) History of mitral valve repair: See above (5) Hypothyroidism: Continue levothyroxine 50 mcg daily (6) Hyperlipidemia: Continue atorvastatin 40 mg every evening (7) HTN (hypertension): Continue irbesartan 300 mg daily (8) GERD (gastroesophageal reflux disease): Continue omeprazole 40 mg daily Total Time Total Time Spent Total Time Spent (In Minutes): 35 Discharge Plan Discharge Items Patient Disposition: Home - Self-Care Reason For Visit: CHEST PAIN Discharge Diagnosis: Pericarditis Condition on Discharge: Good Activity: Resume your previous activity Non-emergency contact: Primary Care Provider and General Helper Call non-emergency contact if: your pain is worsening and your temperature is above 101 Follow-up/Referrals: Mart Lowe MD [Primary Care Provider] - Manpreet Maloney DO [General Helper] - (Please see Dr. Maloney in the office in 1 month.) Diet: Heart Healthy Addtl Attending Provider Instructions: You were admitted to the hospital with inflammation of the lining of your heart called pericarditis. We are discharging you on a steroid taper and colchicine which helped in the past and is already made a big difference for you. Take the steroids as follows: 20 mg (4 tablets) for 5 days 17.5 mg (3.5 tablets) for 5 days 15 mg (3 tablets) for 5 days 12.5 mg (2.5 tablets) for 5 days 10 mg (2 tablets) for 5 days 7.5 mg (1.5 tablets) for 5 days 5 mg (1 tablet) for 5 days 2.5 mg (1/2 tablet) for 5 days. You will take the colchicine two times a day this entire time, and likely longer. Pending Studies at Discharge: No Stand-Alone Forms: Call Back Authorization, [facility], Smoking Cessation Medications and DC Order Prescriptions: New colchicine 0.6 mg tablet 0.6 mg PO BID Qty: 60 RF: 1 prednisone 5 mg tablet 20 mg PO DAILY Qty: 90 RF: 0 Continued atorvastatin 40 mg tablet 40 mg PO HS Qty: 90 RF: 3 levothyroxine 50 mcg tablet 50 mcg PO DAILY RF: 0 omeprazole 40 mg capsule,delayed release(DR/EC) 40 mg PO DAILY RF: 0 irbesartan 300 mg Tablet 300 mg PO DAILY RF: 0 Discharge Orders: Discharge Order (Routine); Ordered 09/21/19 Ordered By: Andrey Cano Admission Data Admit Date/Time: 09/20/19 02:59 Attending Provider: Andrey Cano Admit Provider: Joshua Swartz Primary Care Provider: Mart Lowe Other Providers: Manpreet Maloney ; Andrey Cano Other Interventions: Discharge Summary Assessment (RN) Last Done: 09/21/19 08:24 DC Date/Time DO NOT enter until pt leaves facility: 09/21/19 12:30
[2019-09-23 21:31] LABS: Angiotensin Converting Enzyme 47 U/L (9-67); Anti Nuclear Antibody Screen NEGATIVE (NEGATIVE); Coxsackie B1 <1:8 (<1:8); Coxsackie B2 <1:8 (<1:8); Coxsackie B3 <1:8 (<1:8); Coxsackie B4 <1:8 (<1:8); Coxsackie B5 <1:8 (<1:8); Coxsackie B6 <1:8 (<1:8); Rheumatoid Factor <14 IU/mL (<14)
== END 2019-09-21 12:30 | disposition home or self-care (01) ==
LOC: 1E 22:11 → ED 22:11 → SUATTDRO 09-20 02:59 → 1E 09-20 03:49